=== PATIENT | female | born 1970 | race Caucasian/White ===

== ENCOUNTER 2020-12-25 19:38 | Emergency (ER) | payer OTHER, MEDICAID, SELFPAY ==
[2020-12-25 19:48] VITALS: BP 201/106; PULSE 82; RESP 16; TEMP 36.3; O2SAT 98; BMI 48.2
--- NOTE | 2020-12-25 20:10 | DI.CT.S_ITS ---
PROCEDURE: CT HEAD/BRAIN WO CON INDICATIONS: head injury, confusion TECHNIQUE: Noncontrast 4.5 mm thick angled axial sections acquired from the foramen magnum to the vertex, with coronal and sagittal reformats. For radiation dose reduction, the following was used: automated exposure control, adjustment of mA and/or kV according to patient size. COMPARISON: None. FINDINGS: Image quality: Excellent. CSF spaces: Basal cisterns are patent. No extra-axial fluid collections. Ventricles are normal in size and shape. Brain: No midline shift. No intracranial masses or hemorrhage. Leroy-white matter interface is normal. Skull and face: Calvarium and visualized facial bones are intact, without suspicious lesions. Sinuses: Visualized sinuses and mastoids are clear. IMPRESSION: No acute intracranial process. Dictated by: Smith Kidd M.D. on 12/25/2020 at 21:07 Approved by: Smith Kidd M.D. on 12/25/2020 at 21:12
--- NOTE | 2020-12-25 20:10 | DI.CT.S_ITS ---
PROCEDURE: CT CERVICAL SPINE WO CON INDICATIONS: trauma, midline pain, injury yesterday TECHNIQUE: Noncontrast 3 mm thick sections acquired from the skull base to the T4 level. Sagittal and coronal reformats were then constructed. For radiation dose reduction, the following was used: automated exposure control, adjustment of mA and/or kV according to patient size. COMPARISON: None. FINDINGS: Image quality: Excellent. Bones: No fractures or dislocations. Visualized superior ribs are intact. Multilevel cervical spondylosis and facet arthropathy. Multilevel degenerative endplate sclerosis and spurring. Diffuse facet arthropathy. Soft tissues: Prevertebral soft tissues are normal in thickness. No paravertebral hematomas. No apical pneumothoraces. IMPRESSION: No fracture Dictated by: Smith Kidd M.D. on 12/25/2020 at 21:12 Approved by: Smith Kidd M.D. on 12/25/2020 at 21:15
[2020-12-25] MEDS: TET,DIPH,PERTUSS(ACELL),VAC/PF 0.5 ML SYRINGE IM (20:17)
--- NOTE | 2020-12-25 20:45 | ED_ITS ---
HPI - Head Injury General Chief complaint: Head Injury Stated complaint: thinks concussion, sledding accident Time Seen by Provider: 12/25/20 19:45 Source: patient Mode of arrival: Ambulatory Limitations: no limitations History of Present Illness HPI Narrative: 50-year-old female nonsmoker with history of hypothyroid presents with significant other and a chief complaint of a head injury suffered yesterday while sledding. She was on a slide, traveling at a relatively high rate of speed when she was tossed and struck her forehead. She suffered no loss of consciousness and has full recall. She denies any vomiting. She takes no blood thinners and denies use of alcohol or street drugs. She does have chronic neck pain and says that she does have pain and cannot tell if it is worse than normal. She denies any numbness, tingling or weakness. She had an episode of dizziness earlier today and feels a bit foggy but is otherwise well and free of complaint. She admits to what feels like fullness in her sinuses. She denies nasal drainage and can breath through both nostrils. She's had no fever or chills. MD Complaint: head injury Onset (ago): day(s) Mechanism of Injury: fall Place: outdoors Loss of Consciousness: no Location of injury: frontal Severity: moderate Quality: aching Radiation: none Related Data Home Medications Medication Instructions Recorded Confirmed levothyroxine [Euthyrox] 125 mcg PO DAILY 12/25/20 12/25/20 liothyronine 5 mcg PO DAILY 12/25/20 12/25/20 Allergies Allergy/AdvReac Type Severity Reaction Status Date / Time No Known Drug Allergies Allergy Verified 12/25/20 19:53 Review of Systems Review of Systems ROS Unobtainable: All systems reviewed & are unremarkable except as noted in HPI and below Constitutional Constitutional: Denies chills, Denies fatigue, Denies fever(s), Denies frequent falls, Reports headache(s), Denies lethargy and Denies weakness Eyes Eyes: Denies change in vision, Denies eye discharge, Denies irritation and Denies loss of vision ENT Ears, Nose, Mouth, and Throat: Denies change in voice, Reports dizziness, Reports headache(s), Denies neck pain, Denies sore throat and Denies throat swelling Cardiovascular Cardiovascular: Denies chest pain, Denies irregular heart rhythm, Denies lightheadedness, Denies palpitations, Denies dyspnea, Denies dyspnea on exertion and Denies orthopnea Respiratory Respiratory: Denies cough, Denies dyspnea, Denies dyspnea on exertion and Denies wheezing Gastrointestinal Gastrointestinal: Denies abdominal pain, Denies change in bowel habits, Denies diarrhea, Denies nausea and Denies vomiting Musculoskeletal Musculoskeletal: Denies neck pain and Denies numbness Integumentary/Breasts Skin/Breast: Denies pruritus, Denies erythema, Denies rash and Denies wounds Neurologic Neurologic: Denies behavioral changes, Denies confusion, Reports dizziness, Denies frequent falls, Reports headache(s), Denies loss of vision, Denies numbness and Denies weakness Psychiatric Psychiatric: Denies anxiety, Denies behavioral changes, Denies confusion, Denies depression, Denies homicidal ideation and Denies suicidal ideation Endocrine Endocrine: Denies fatigue, Denies flushing and Denies palpitations Hematologic/Lymphatic Hematologic/Lymphatic: Denies easy bruising Allergic/Immunologic Allergic/Immunologic: Denies urticaria, Denies throat swelling and Denies wheezing Patient History Social History Smoking Status: Never smoker Smoking Status: Never smoker alcohol intake frequency: holidays/special occasions only Substance Use Type: does not use Exam Narrative Exam Narrative: GENERAL: [50] year old patient appears stated age. Well- nourished, well-developed patient, in mild distress. GCS 15 HEAD: Superficial abrasion on forehead, no laceration. No evidence of depressed skull fracture EYES: Pupils equal round and reactive. No hyphema. Extraocular motions intact. No scleral icterus. No injection or drainage. ENT: Nose without bleeding, purulent drainage. No nasal septal hematoma. Throat without erythema, tonsillar hypertrophy or exudate. Airway patent. NECK: Trachea midline. Mild tenderness to midline lower C spine. No stepoffs or crepitance. CARDIOVASCULAR: Regular rate and rhythm without murmurs, gallops, or rubs. RESPIRATORY: Clear to auscultation. Breath sounds equal bilaterally. No wheezes, rales, or rhonchi. GASTROINTESTINAL: Abdomen soft, non-tender, nondistended. EXTREMITIES: No edema or joint tenderness. BACK: Nontender without deformity or crepitance. No flank tenderness. NEURO: AOx3. SKIN: No rash or erythema of visible areas Initial Vital Signs Initial Vital Signs: Vital Signs Temperature 97.4 F L 12/25/20 19:48 Pulse Rate 82 12/25/20 19:48 Respiratory Rate 16 12/25/20 19:48 Blood Pressure 201/106 H 12/25/20 19:48 Pulse Oximetry 98 12/25/20 19:48 Course Orders Ordered: ED Orders 12/25/20 20:10 CT cervical spine wo con Stat CT head/brain wo con Stat Discontinued Medications Diphtheria/Tetanus/Acell Pertussis (Tet,Diph,Pertuss(Acell),Vac/Pf 0.5 Ml Syringe) 0.5 ml IM .ONCE ONE Stop: 12/25/20 19:56 Last Admin: 12/25/20 20:17 Dose: 0.5 ml Documented by: MARLENI Vital Signs Vital signs: Vital Signs - 8 hr 12/25/20 19:48 Temperature 97.4 F L Pulse Rate 82 Respiratory Rate 16 Blood Pressure 201/106 H Pulse Oximetry 98 MDM - Head Injury Imaging Data CT scan - head: Radiologist's Impression: PROCEDURE: CT HEAD/BRAIN WO CON INDICATIONS: head injury, confusion TECHNIQUE: Noncontrast 4.5 mm thick angled axial sections acquired from the foramen magnum to the vertex, with coronal and sagittal reformats. For radiation dose reduction, the following was used: automated exposure control, adjustment of mA and/or kV according to patient size. COMPARISON: None. FINDINGS: Image quality: Excellent. CSF spaces: Basal cisterns are patent. No extra-axial fluid collections. Ventricles are normal in size and shape. Brain: No midline shift. No intracranial masses or hemorrhage. Leroy-white matter interface is normal. Skull and face: Calvarium and visualized facial bones are intact, without suspicious lesions. Sinuses: Visualized sinuses and mastoids are clear. IMPRESSION: No acute intracranial process. Dictated by: Smith Kidd M.D. on 12/25/2020 at 21:07 Approved by: Smith Kidd M.D. on 12/25/2020 at 21:12 CT - cervical spine: Radiologist's Impression: [address] [id number] Scan ReportSigned Patient: Arpita Monzon [facility]#: [id number]: 1970Acct:[id number]/Sex: 50 / FDate of Service: 12/25/20Loc: EDAccession Number: [id number] Procedure: CT cervical spine wo con Ordering Provider: Jose J Bolton D.O. PROCEDURE: CT CERVICAL SPINE WO CON INDICATIONS: trauma, midline pain, injury yesterday TECHNIQUE: Noncontrast 3 mm thick sections acquired from the skull base to the T4 level. Sagittal and coronal reformats were then constructed. For radiation dose reduction, the following was used: automated exposure control, adjustment of mA and/or kV according to patient size. COMPARISON: None. FINDINGS: Image quality: Excellent. Bones: No fractures or dislocations. Visualized superior ribs are intact. Multilevel cervical spondylosis and facet arthropathy. Multilevel degenerative endplate sclerosis and spurring. Diffuse facet arthropathy. Soft tissues: Prevertebral soft tissues are normal in thickness. No paravertebral hematomas. No apical pneumothoraces. IMPRESSION: No fracture Dictated by: Smith Kidd M.D. on 12/25/2020 at 21:12 Approved by: Smith Kidd M.D. on 12/25/2020 at 21:15 Discharge Plan Departure Patient Disposition: Home Clinical Impression: Concussion without loss of consciousness Qualifiers: Encounter type: initial encounter Qualified Code(s): S06.0X0A - Concussion without loss of consciousness, initial encounter Instructions: Concussion Activity Restrictions/Additional Instructions: You have a slight concussion and will likely have a mild headache and some nausea for a few days. Avoiding highly stimulating activities and even TV or computers may be helpful in minimizing your symptoms. Avoid activities that will put you at risk for another head injury for at least a week. You can take tylenol or motrin for headache Return for worsening or persistent symptoms Prescriptions: No Action levothyroxine [Euthyrox] 125 mcg tablet 125 mcg PO DAILY RF: 0 liothyronine 5 mcg Tablet 5 mcg PO DAILY RF: 0
[2020-12-25 21:40] VITALS: BP 196/86; PULSE 71; RESP 16
== END 2020-12-25 21:43 | disposition home or self-care (01) ==
PROVIDERS: Emergency Provider Emergency Medicine
DX: S06.0X0A Concussion without loss of consciousness, initial encounter (principal); M54.5 Low back pain; R41.0 Disorientation, unspecified; W09.8XXA Fall on or from other playground equipment, initial encounter; Z23 Encounter for immunization
CPT/HCPCS: 70450; 72125; 90471; 99284; 90715

== ENCOUNTER 2021-12-20 19:46 | Emergency (ER) | payer OTHER, MEDICAID, SELFPAY ==
[2021-12-20 19:50] VITALS: BP 134/72; PULSE 69; RESP 15; TEMP 35.9; O2SAT 98; BMI 46.8
[2021-12-20 20:18] LABS: COVID19 -Nasal RAPID Negative (Negative)
--- NOTE | 2021-12-20 22:06 | ED.HA ---
HPI - Headache General Chief Complaint: Headache Stated Complaint: wants covid test, partner tested + Time Seen by Provider: 12/20/21 21:48 Mode of arrival: Ambulatory History of Present Illness HPI Narrative: Patient here for COVID testing. Partner tested positive for COVID today. Partner was exposed to another person with COVID last week. Patient denies any cough cold congestion fever chills. Does have mild headache. No loss of taste or smell. No dyspnea. No history of heart attack strokes or diabetes or lung disease. Related Data Home Medications Medication Instructions Recorded Confirmed levothyroxine 125 mcg tablet 125 mcg PO DAILY 12/25/20 07/11/21 (Euthyrox) liothyronine 5 mcg tablet 5 mcg PO DAILY 12/25/20 07/11/21 Allergies Allergy/AdvReac Type Severity Reaction Status Date / Time pseudoephedrine Allergy Verified 12/20/21 19:50 [From [facility]] Review of Systems Review of Systems Narrative: GENERAL: Denies chills, fatigue, malaise, fever, sweats. HEENT: Denies sinus pain, ear pain, sore throat RESPIRATORY: Denies dyspnea, cough CARDIOVASCULAR: Denies chest pain, palpitations GASTROINTESTINAL: Denies nausea, vomiting, abdominal pain : Denies dysuria, frequency, hematuria MUSCULOSKELETAL: denies muscle or bony pain SKIN: Denies rash, skin lesions NEUROLOGIC: Denies weakness, numbness, positive for headache ROS Unobtainable: All systems reviewed & are unremarkable except as noted in HPI and below Patient History Social History Smoking Status: Never smoker Smoking Status: Never smoker alcohol intake frequency: holidays/special occasions only Substance Use Type: does not use Exam Narrative Exam Narrative: GENERAL: in no distress, not toxic not dyspneic HEAD: Normocephalic. EYES: Pupils equal round No scleral icterus. NECK: Trachea midline. CARDIOVASCULAR: Regular rate and rhythm without murmurs RESPIRATORY: Clear to auscultation. Breath sounds equal bilaterally. No wheezes, rales, or rhonchi. BACK: No flank tenderness. NEURO: AOx4. SKIN: Warm and dry PSYCH: Not anxious, is cooperative Initial Vital Signs Initial Vital Signs: Vital Signs Temperature 96.6 F L 12/20/21 19:50 Pulse Rate 69 12/20/21 19:50 Respiratory Rate 15 12/20/21 19:50 Blood Pressure 134/72 12/20/21 19:50 Pulse Oximetry 98 12/20/21 19:50 Course Course Course Narrative: No new issues during course of stay Orders Ordered: ED Orders 12/20/21 19:53 COVID19 -Nasal swab/Pre-Proc Stat Reevaluation(s) Reevaluation #1: Reviewed results with patient and agrees for discharge home. Reviewed quarantine for asymptomatic person's. Time: 22:09 Vital Signs Vital signs: Vital Signs - 8 hr 12/20/21 19:50 12/20/21 22:18 Temperature 96.6 F L Pulse Rate 69 73 Respiratory Rate 15 Blood Pressure 134/72 134/87 Pulse Oximetry 98 97 MDM - Headache Differential Diagnosis Differential diagnosis: Likely other (COVID exposure) Lab Data Labs: Lab Results 12/20/21 Range/Units 19:53 SARS-CoV-2 (PCR) Negative (Negative) MDM Narrative Medical decision making narrative: Appropriate for discharge home. No blood work or imaging indicated. Patient essentially asymptomatic, or complains of mild headache. Exam and vital signs reassuring. Return precautions reviewed with her. She desires discharge home. Discharge Plan Departure Patient Disposition: Home Clinical Impression: Close exposure to 2019 novel coronavirus Instructions: DI for COVID-19 (Suspected or Confirmed ) Activity Restrictions/Additional Instructions: See family doctor in a week for recheck. Guidelines are to quarantine 5 days if you have no symptoms. Return if worse if any questions or concerns Prescriptions: No Action levothyroxine [Euthyrox] 125 mcg tablet 125 mcg PO DAILY 0RF liothyronine 5 mcg Tablet 5 mcg PO DAILY 0RF
[2021-12-20 22:18] VITALS: BP 134/87; PULSE 73; O2SAT 97
--- NOTE | 2021-12-20 22:27 | PC.NURSE ---
Agree with pt care/charting by Kanika Whitlock
== END 2021-12-20 22:27 | disposition home or self-care (01) ==
PROVIDERS: Emergency Provider Emergency Medicine
DX: R51.9 Headache, unspecified (principal); Z20.822 Contact with and (suspected) exposure to COVID-19
CPT/HCPCS: 87635; 99281; 99282; C9803

== ENCOUNTER 2022-09-01 14:36 | Emergency (ER) | payer OTHER, SELFPAY ==
[2022-09-01 14:41] VITALS: BP 171/94; PULSE 72; RESP 20; TEMP 36.8; O2SAT 99; BMI 50.6
--- NOTE | 2022-09-01 14:51 | DI.RAD.S_ITS ---
PROCEDURE: XR CHEST 1V INDICATIONS: chest pain TECHNIQUE: One view of the chest was acquired. COMPARISON: None. FINDINGS: Surgical changes and devices: None. Lungs and pleura: Lungs are clear. No pleural effusions or pneumothorax. Mediastinum: Mediastinal contours appear normal. Heart size is normal. Bones and chest wall: No suspicious bony lesions. Age-appropriate bony degenerative changes are seen. Overlying soft tissues appear unremarkable. IMPRESSION: Unremarkable portable chest for age. Dictated by: Inderjit Shelby M.D. on 09/01/2022 at 14:18 Approved by: Inderjit Shelby M.D. on 09/01/2022 at 14:18
--- NOTE | 2022-09-01 16:01 | ED_ITS ---
HPI - Chest Pain General Chief Complaint: Chest Pain Stated Complaint: Potential carbon monoxide poisoning at work Time Seen by Provider: 09/01/22 16:01 Source: patient and family Mode of arrival: Wheelchair Limitations: no limitations History of Present Illness HPI narrative: Patient is a 52-year-old female. 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 She states she had a fairly sudden onset of headache and dizziness and nausea and cold sweats and generally not feeling very well. She thought that there was potentially a carbon monoxide/dioxide exposure because of a gas leak on the bus. She became nauseous fairly quickly. States she is having a room spinning vertigo sensation. This is positional as every time she sits back the symptoms come on. She is not having any shortness of breath. No other reported neurologic symptoms. She states she has chronic issues with her sinuses but currently that is not any different than her baseline. No ringing in her ears. No sore throat. Related Data Home Medications Medication Instructions Recorded Confirmed levothyroxine 125 mcg tablet 125 mcg PO DAILY 12/25/20 08/12/22 (Euthyrox) liothyronine 5 mcg tablet 5 mcg PO DAILY 12/25/20 08/12/22 Previous Rx's Medication Instructions Recorded meclizine 25 mg tablet 25 mg PO BID PRN dizziness #14 tabs 09/01/22 ondansetron 4 mg disintegrating 4 mg PO Q6H PRN nausea and 09/01/22 tablet vomiting #14 tabs Allergies Allergy/AdvReac Type Severity Reaction Status Date / Time pseudoephedrine Allergy Verified 08/12/22 11:45 [From [facility]] Review of Systems Review of Systems ROS Unobtainable: All systems reviewed & are unremarkable except as noted in HPI and below Patient History Medical History Hypothyroid Sinusitis Social History Smoking Status: Never smoker Smoking Status: Never smoker alcohol intake frequency: holidays/special occasions only Substance Use Type: does not use Exam Initial Vital Signs Initial Vital Signs: Vital Signs Temperature 98.2 F 09/01/22 14:41 Pulse Rate 72 09/01/22 14:41 Respiratory Rate 20 09/01/22 14:41 Blood Pressure 171/94 H 09/01/22 14:41 Pulse Oximetry 99 09/01/22 14:41 Oxygen Delivery Method 09/01/22 14:41 Const General: cooperative, comfortable and No ill appearing HENMT Head: normal to inspection and normocephalic Resp Effort & Inspection: normal respiratory effort Auscultation: clear to auscultation bilaterally Cardio Rate: regular rate Rhythm: regular rhythm Skin General: no rashes or lesions noted Neuro General: patient alert, patient awake, patient oriented x3 and moves all extremities Cognition: normal cognition Speech: speech normal Gait: normal gait Extrem General: normal to inspection Psych Appearance: grossly normal and well kempt Course Orders Ordered: ED Orders 09/01/22 14:47 EKG-12 Lead Stat 09/01/22 14:51 XR chest 1V Stat 09/01/22 16:08 Complete Blood Count AUTO DIFF Stat Comprehensive Metabolic Panel Stat Lipase Stat Magnesium Stat Troponin & CK Cardiac Panel Stat Discontinued Medications Meclizine HCl (Meclizine Hcl 12.5 Mg Tablet) 25 mg PO NOW ONE Stop: 09/01/22 16:03 Last Admin: 09/01/22 16:14 Dose: 25 mg Documented By: KATHRIN Vital Signs Vital signs: Vital Signs - 8 hr 09/01/22 14:41 09/01/22 16:16 09/01/22 16:17 Temperature 98.2 F Pulse Rate 72 77 Respiratory Rate 20 Blood Pressure 171/94 H 176/86 H Pulse Oximetry 99 99 Oxygen Delivery Method Room Air 09/01/22 16:30 09/01/22 16:30 09/01/22 17:00 Temperature Pulse Rate 68 Respiratory Rate 14 Blood Pressure 177/94 H 179/102 H Pulse Oximetry 98 Oxygen Delivery Method Room Air 09/01/22 17:00 Temperature Pulse Rate 69 Respiratory Rate 14 Blood Pressure Pulse Oximetry 99 Oxygen Delivery Method MDM - Chest Pain Lab Data Attestation: I reviewed the patient's lab results. Result diagrams: 09/01/22 16:08 09/01/22 16:08 Labs: Lab Results 09/01/22 09/01/22 Range/Units 16:08 16:08 WBC 8.9 (4.5-11.0) X10^3/uL RBC 3.98 L (4.0-5.2) X10^6/uL Hgb 11.9 L (12.0-16.0) g/dL Hct 35.0 L (36-46) % MCV 88.2 (80-100) fL MCH 29.8 (26-34) PG MCHC 33.8 (30-36) % RDW 14.4 (11.6-14.8) % Plt Count 216 (150-400) X10^3/uL Neut % (Auto) 74.9 (50-75) % Lymph % (Auto) 16.6 L (25-40) % [place] % (Auto) 7.3 (3-14) % Eos % (Auto) 0.8 L (2-4) % Baso % (Auto) 0.4 (0-2) % Neut # (Auto) 6700 (3717-9430) /uL Lymph # (Auto) 1500 (0484-6687) /uL [place] # (Auto) 700 (0-900) /uL Eos # (Auto) 100 (0-450) /uL Baso # (Auto) 0 (0-100) /uL Sodium 137 (137-145) mmol/L Potassium 4.2 (3.4-5.1) mmol/L Chloride 99 (98-107) mmol/L Carbon Dioxide 33 H (22-32) mmol/L BUN 22 H (7-17) mg/dL Creatinine 0.80 (0.52-1.04) mg/dL Estimated GFR > 60 (>60) mL/min BUN/Creatinine Ratio 27.5 H (6-22) Glucose 107 H (70-100) mg/dL Calcium 9.3 (8.4-10.2) mg/dL Magnesium 1.9 (1.6-2.3) mg/dL Total Bilirubin 0.7 (0.2-1.3) mg/dL AST 26 (14-36) IU/L ALT 19 (<35) IU/L Alkaline Phosphatase 87 (38-126) U/L Total Creatine Kinase 202 H (30-135) U/L CK-MB (CK-2) 2.76 H (<2.37) ng/mL CK-MB (CK-2) Rel Index 1.4 L (1.5-5.0) % Troponin I < 0.012 (0.01-0.034) ng/mL Total Protein 7.4 (6.3-8.2) g/dL Albumin 4.0 (3.5-5.0) g/dL Globulin 3.4 (1.7-4.1) g/dL Albumin/Globulin Ratio 1.2 (1.0-2.8) Lipase 36 (23-300) U/L Imaging Data Chest x-ray: Radiologist's Impression: [address] [id number] XRay Report Signed Patient: Arpita Monzon MR#: [id number] : 1970 Acct:[id number] Age/Sex: 52 / F Date of Service: 09/01/22 Loc: ED Accession Number: [id number] ?? Procedure: XR chest 1V Ordering Provider: Hilario Harrison D.O. PROCEDURE:? XR CHEST 1V ? INDICATIONS:? chest pain ? TECHNIQUE:? One view of the chest was acquired.? ? COMPARISON:? None. ? FINDINGS:? ? Surgical changes and devices:? None.? ? Lungs and pleura:? Lungs are clear.? No pleural effusions or pneumothorax.? ? Mediastinum:? Mediastinal contours appear normal.? Heart size is normal.? ? Bones and chest wall:? No suspicious bony lesions.? Age-appropriate bony degenerative changes are seen. ? Overlying soft tissues appear unremarkable.? ? ? IMPRESSION:? Unremarkable portable chest for age. ? ? Dictated by: Inderjit Shelby M.D. on 09/01/2022 at 14:18 ? ? Approved by: Inderjit Shelby M.D. on 09/01/2022 at 14:18? ECG Data Attestation: I personally reviewed and interpreted this ECG as follows: Interpretation: Sinus rhythm Normal axis Ventricular rate is 67 Normal QRS Normal QTC No ST T wave changes MDM Narrative Medical decision making narrative: Patient is not hypoxic. Not tachypneic. No respiratory distress. Chest x-ray is unremarkable. Vital signs unremarkable. Labs are unremarkable. EKG is unremarkable. Has reproducible vertigo symptoms when she lays back. An exposure to carbon monoxide/dioxide is not unreasonable given her occupation however removing herself from the environment would be the treatment for any of these symptoms. They her presenting symptoms could potentially be the result of this. No indication for further radiologic studies. Will treat symptomatically. Will have her avoid driving for the next couple days. She was given return precautions. She expressed understanding and agreement. Discharge Plan Departure Patient Disposition: Home Clinical Impression: Lightheadedness, Nausea Instructions: Vertigo, DI for Nausea -- Adult Activity Restrictions/Additional Instructions: You can take Tylenol for any headaches. You can take the other medications as needed for symptom treatment. Recommend that you avoid situations where you could be exposed to carbon monoxide/carbon dioxide for the next couple days. If your symptoms worsen please return to the emergency department for further evaluation Prescriptions: New meclizine 25 mg tablet 25 mg PO BID PRN (Reason: dizziness) Qty: 14 0RF ondansetron 4 mg tablet,disintegrating 4 mg PO Q6H PRN (Reason: nausea and vomiting) Qty: 14 0RF No Action levothyroxine [Euthyrox] 125 mcg tablet 125 mcg PO DAILY liothyronine 5 mcg Tablet 5 mcg PO DAILY Visit Report Forms: Patient Portal/API
[2022-09-01] MEDS: MECLIZINE HCL 12.5 MG TABLET 25 MG PO (16:14)
[2022-09-01 16:16] VITALS: BP 176/86
[2022-09-01 16:16] LABS: Add Manual Diff / Slide Review NO; Basophils Absolute Auto 0 /uL (0-100); Basophils Percent Auto 0.4 % (0-2); Eosinophils Absolute Auto 100 /uL (0-450); Eosinophils Percent Auto 0.8 % (2-4); Hemoglobin 11.9 g/dL (12.0-16.0); Lymphocytes Absolute Auto 1500 /uL (1100-4500); Lymphocytes Percent Auto 16.6 % (25-40); Mean Corpuscular HGB Conc 33.8 % (30-36); Mean Corpuscular Hemoglobin 29.8 PG (26-34); Mean Corpuscular Volume 88.2 fL (80-100); Monocytes Absolute Auto 700 /uL (0-900); Monocytes Percent Auto 7.3 % (3-14); Neutrophils Absolute Auto 6700 /uL (1500-7000); Neutrophils Percent Auto 74.9 % (50-75); Platelet Count 216 X10^3/uL (150-400); Red Blood Cell Count 3.98 X10^6/uL (4.0-5.2); Red Cell Distribution Width 14.4 % (11.6-14.8); White Blood Cell Count 8.9 X10^3/uL (4.5-11.0)
[2022-09-01 16:17] VITALS: PULSE 77; O2SAT 99
[2022-09-01 16:30] VITALS: BP 177/94; PULSE 68; RESP 14; O2SAT 98
[2022-09-01 16:32] LABS: Alanine Aminotransferase 19 IU/L (<35); Albumin Globulin Ratio 1.2 (1.0-2.8); Alkaline Phosphatase 87 U/L (38-126); Aspartate Aminotransferase 26 IU/L (14-36); BUN Creatinine Ratio 27.5 (6-22); Bilirubin Total 0.7 mg/dL (0.2-1.3); Blood Urea Nitrogen 22 mg/dL (7-17); Calcium 9.3 mg/dL (8.4-10.2); Carbon Dioxide 33 mmol/L (22-32); Chloride 99 mmol/L (98-107); Creatine Kinase 202 U/L (30-135); Estimated Glomerular Filt Rate > 60 mL/min (>60); Globulin 3.4 g/dL (1.7-4.1); Glucose 107 mg/dL (70-100); HEMOLYSIS 41 (0-50); Lipase 36 U/L (23-300); Magnesium 1.9 mg/dL (1.6-2.3); Potassium 4.2 mmol/L (3.4-5.1); Sodium 137 mmol/L (137-145); Total Protein 7.4 g/dL (6.3-8.2)
[2022-09-01 16:43] LABS: Troponin I < 0.012 ng/mL (0.01-0.034)
[2022-09-01 16:47] LABS: CKMB % Relative Index 1.4 % (1.5-5.0); Creatine Kinase MB 2.76 ng/mL (<2.37)
[2022-09-01 17:00] VITALS: BP 179/102; PULSE 69; RESP 14; O2SAT 99
--- NOTE | 2022-09-01 17:44 | PC.NURSE ---
Patient's blood pressure is elevated due to the fact she did not take her medication last night like normal and has not taken it today.
== END 2022-09-01 17:45 | disposition home or self-care (01) ==
PROVIDERS: Emergency Provider Emergency Medicine
DX: Z57.5 Occupational exposure to toxic agents in other industries (principal); R07.9 Chest pain, unspecified; R42 Dizziness and giddiness; R11.0 Nausea; Y99.0 Civilian activity done for income or pay
CPT/HCPCS: 36415; 71045; 80053; 82550; 82553; 83690; 83735; 84484; 85025; 93005; 93010; 99284

== ENCOUNTER 2022-09-03 16:06 | Emergency (ER) | payer OTHER, SELFPAY ==
--- NOTE | 2022-09-03 11:51 | DI.MRI.S_ITS ---
PROCEDURE: MR STROKE Pre- and post-contrast brain MRI, non-contrast brain MR angiogram, pre- and postcontrast neck MR angiogram INDICATIONS: concern for posterior circulation stroke TECHNIQUE: Brain: Noncontrast axial T1 spin echo, axial T2 fast spin echo, sagittal and axial FLAIR, coronal T2 fast spin echo, axial gradient echo, axial diffusion and ADC through the brain. After the administration of contrast, axial 3D VIBE of the cranial vasculature and brain. Brain MRA: Non-contrast 3-D time of flight MR angiogram, with multiple mysgccl-znguolxsp-qmvyaoiwjk (MIP) reformats performed. Neck MRA: Axial and sagittal TruFISP through the neck. Coronal dynamic MR angiogram during administration of contrast in the arterial and venous phases, with 3-dimenstional ubcdbhj-fvuzgdyrn-bxwtlyquoh (MIP) reformats constructed from subtraction images. COMPARISON: [facility], CT, CT HEAD/BRAIN WO CON, 09/03/2022, 17:24. FINDINGS: Image quality: Excellent. BRAIN: No restricted diffusion to indicate recent ischemia. The major intracranial vascular flow-related signal voids are maintained. No brain parenchymal FLAIR signal abnormality. Midline structures normal in configuration. BRAIN MR ANGIOGRAM: Anterior circulation: Intracranial internal carotid arteries are normal in size and enhancement. The flow within the paired anterior cerebral arteries is normal and symmetric. The flow within the middle cerebral arteries is normal and symmetric. The anterior communicating artery is seen. No stenoses, occlusions, or aneurysms. Posterior circulation: The right vertebral artery is hypoplastic and appears to either terminate in PICA or contribute very little to the basilar circulation. The basilar artery and posterior cerebral arteries are unremarkable. NECK MR ANGIOGRAM: Carotids: Great vessels demonstrate a conventional anatomy as they arise from the aortic arch. The origins of the common carotid arteries appear patent. The calibers and courses of both common carotid arteries are normal. The bifurcation regions appear normal bilaterally. The internal carotid arteries demonstrate normal course and caliber. Posterior circulation: Hypoplastic right vertebral artery. Cervical portions of the vertebral arteries appear widely patent. Miscellaneous: Subclavian arteries appear patent. Pre-contrast images through the neck show no soft tissue abnormalities. IMPRESSION: BRAIN MRI: No acute infarct or other acute intracranial abnormality. BRAIN MR ANGIOGRAM: No hemodynamically significant stenosis or occlusion of the major intracranial arterial circulation. Hypoplastic right vertebral artery which appears to either terminate in PICA or contribute very little to the basilar circulation. NECK MR ANGIOGRAM: Hypoplastic right vertebral artery. No cervical arterial stenosis or occlusion demonstrated. Dictated by: Niranjan Mitchell M.D. on 09/04/2022 at 11:38 Approved by: Niranjan Mitchell M.D. on 09/04/2022 at 11:47
[2022-09-03 16:13] VITALS: BP 150/78; PULSE 82; RESP 16; TEMP 36.4; O2SAT 99; BMI 50.6
--- NOTE | 2022-09-03 17:13 | DI.CT.S_ITS ---
PROCEDURE: CT HEAD/BRAIN WO CON INDICATIONS: Vertigo TECHNIQUE: Noncontrast 4.5 mm thick angled axial sections acquired from the foramen magnum to the vertex, with coronal and sagittal reformats. For radiation dose reduction, the following was used: automated exposure control, adjustment of mA and/or kV according to patient size. COMPARISON: [facility], CT, CT HEAD/BRAIN WO CON, 12/25/2020, 20:10. FINDINGS: Image quality: Excellent. CSF spaces: Basal cisterns are patent. No extra-axial fluid collections. Ventricles are normal in size and shape. Brain: No midline shift. No intracranial masses or hemorrhage. Leroy-white matter interface is normal. Skull and face: Calvarium and visualized facial bones are intact, without suspicious lesions. Sinuses: Visualized sinuses and mastoids are clear. IMPRESSION: No acute intracranial abnormality. Dictated by: Rebel Rivera M.D. on 09/03/2022 at 17:43 Approved by: Rebel Rivera M.D. on 09/03/2022 at 17:45
[2022-09-03 17:29] LABS: Albumin 3.9 g/dL (3.5-5.0); Albumin Globulin Ratio 1.2 (1.0-2.8); Alkaline Phosphatase 90 U/L (38-126); Aspartate Aminotransferase 21 IU/L (14-36); BUN Creatinine Ratio 17.6 (6-22); Bilirubin Total 0.5 mg/dL (0.2-1.3); Blood Urea Nitrogen 15 mg/dL (7-17); Calcium 9.5 mg/dL (8.4-10.2); Carbon Dioxide 33 mmol/L (22-32); Chloride 101 mmol/L (98-107); Creatine Kinase 127 U/L (30-135); Estimated Glomerular Filt Rate > 60 mL/min (>60); Globulin 3.3 g/dL (1.7-4.1); Glucose 97 mg/dL (70-100); HEMOLYSIS < 15 (0-50); Lipase 45 U/L (23-300); Potassium 3.9 mmol/L (3.4-5.1); Sodium 141 mmol/L (137-145); Total Protein 7.2 g/dL (6.3-8.2)
[2022-09-03 17:30] LABS: Add Manual Diff / Slide Review NO; Basophils Absolute Auto 0 /uL (0-100); Basophils Percent Auto 0.4 % (0-2); Eosinophils Absolute Auto 100 /uL (0-450); Eosinophils Percent Auto 1.6 % (2-4); Hematocrit 37.6 % (36-46); Hemoglobin 12.4 g/dL (12.0-16.0); Lymphocytes Absolute Auto 2300 /uL (1100-4500); Lymphocytes Percent Auto 26.5 % (25-40); Mean Corpuscular Hemoglobin 29.4 PG (26-34); Mean Corpuscular Volume 89.2 fL (80-100); Monocytes Absolute Auto 700 /uL (0-900); Monocytes Percent Auto 8.4 % (3-14); Neutrophils Absolute Auto 5500 /uL (1500-7000); Neutrophils Percent Auto 63.1 % (50-75); Platelet Count 232 X10^3/uL (150-400); Red Blood Cell Count 4.22 X10^6/uL (4.0-5.2); White Blood Cell Count 8.8 X10^3/uL (4.5-11.0)
[2022-09-03 17:35] LABS: Alanine Aminotransferase 17 IU/L (<35)
[2022-09-03] MEDS: SODIUM CHLORIDE 0.9% 1,000 ML 1000 ML IV (17:39)
[2022-09-03 17:40] LABS: Troponin I < 0.012 ng/mL (0.01-0.034)
[2022-09-03 17:46] LABS: CKMB % Relative Index 1.4 % (1.5-5.0); Creatine Kinase MB 1.72 ng/mL (<2.37)
[2022-09-03 18:00] LABS: Thyroid Stimulating Hormone 0.579 uIU/mL (0.47-4.68)
--- NOTE | 2022-09-03 18:17 | ED.GENADULT ---
HPI - General Adult <Mara Capone MD - Last Filed: 09/10/22 03:22> General Chief complaint: Dizziness Stated complaint: Recheck for possible carbon monoxide poisoning Time Seen by Provider: 09/03/22 17:12 Source: patient Mode of arrival: Wheelchair History of Present Illness HPI narrative: 52-year-old woman with a history of hypertension, hypothyroidism hyperlipidemia presents for the 2nd time with complaints of dizziness. 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 Symptoms did not improve when she was removed from the vehicle. She is complaining of headache, dizziness nausea and cold sweats. Blood pressures were relatively elevated at the time. Eventually diagnosed with vertigo with symptoms reproducible when she lays back. She was given meclizine and Zofran and instructions to follow up of symptoms did not improve. Today she is complaining of continued dizziness, she has noticed some blurry vision, increasing difficulty and worsening vertigo with movement particularly if she is in a vehicle. Has not been able to return to driving at. Also complains of sinus pressure, headache pain at the base of her neck. She reports that she has intermittent tinnitus as a chronic problem which is significantly worse recently. Has been having increasing difficulty with elevated blood pressures as well. She notes that she has been having increasing word-finding difficulties in her partner notes that she seems like she has been cognitively slowed. She does not report extremity paresthesias or weakness. Related Data Home Medications Medication Instructions Recorded Confirmed levothyroxine 125 mcg tablet 125 mcg PO DAILY 12/25/20 08/12/22 (Euthyrox) liothyronine 5 mcg tablet 5 mcg PO DAILY 12/25/20 08/12/22 Previous Rx's Medication Instructions Recorded meclizine 25 mg tablet 25 mg PO BID PRN dizziness #14 tabs 09/01/22 ondansetron 4 mg disintegrating 4 mg PO Q6H PRN nausea and 09/01/22 tablet vomiting #14 tabs Allergies Allergy/AdvReac Type Severity Reaction Status Date / Time pseudoephedrine Allergy Verified 08/12/22 11:45 [From [facility]] Review of Systems <Mara Capone MD - Last Filed: 09/10/22 03:22> Review of Systems Narrative: Remainder of complete review of systems is otherwise unremarkable except for that included in the HPI. Patient History <Mara Capone MD - Last Filed: 09/10/22 03:22> Medical History (Updated 09/04/22 @ 12:27 by Hilario Harrison DO) Hyperlipidemia Hypertension Hypothyroid Sinusitis Social History Smoking Status: Never smoker Smoking Status: Never smoker alcohol intake frequency: holidays/special occasions only Substance Use Type: does not use Exam <Mara Capone MD - Last Filed: 09/10/22 03:22> Initial Vital Signs Initial Vital Signs: Vital Signs Temperature 97.5 F L 09/03/22 16:13 Pulse Rate 82 09/03/22 16:13 Respiratory Rate 16 09/03/22 16:13 Blood Pressure 150/78 H 09/03/22 16:13 Pulse Oximetry 99 09/03/22 16:13 Oxygen Delivery Method 09/03/22 16:13 General: Healthy appearing, in mild distress. Able to give a complete and coherent history. Well-nourished well-developed HEENT: Moist mucous membranes, normal sclera with reactive pupils, no positional nystagmus. Neck: No JVD, supple Respiratory: Lungs are clear to auscultation, no wheezing no rales no rhonchi. Full and symmetrical air movement Cardiac: Regular rate and rhythm no murmurs no bruits Abdomen: Soft, nontender, good bowel tones, no flank pain Skin: Warm and dry, no rashes Neurologic: Grossly neurologically intact with no obvious asymmetries or abnormalities. NIH score = 0 Extremities: No trauma, well perfused Psych: Cooperative, appropriate insight and affect <Hilario Harrison DO - Last Filed: 09/04/22 12:28> Initial Vital Signs Initial Vital Signs: Vital Signs Temperature 97.5 F L 09/03/22 16:13 Pulse Rate 82 09/03/22 16:13 Respiratory Rate 16 09/03/22 16:13 Blood Pressure 150/78 H 09/03/22 16:13 Pulse Oximetry 99 09/03/22 16:13 Oxygen Delivery Method 09/03/22 16:13 Course <Mara Capone MD - Last Filed: 09/10/22 03:22> Orders Ordered: Discontinued Medications Amlodipine Besylate (Amlodipine 5 Mg Tablet) 10 mg PO NOW ONE Stop: 09/03/22 22:17 Last Admin: 09/04/22 01:41 Dose: 10 mg Documented By: MEREDITH Gabapentin (Gabapentin 300 Mg Capsule) 300 mg PO NOW ONE Stop: 09/03/22 22:17 Last Admin: 09/04/22 01:41 Dose: 300 mg Documented By: MEREDITH Sodium Chloride (Normal Saline 0.9%) 1,000 mls @ 1,000 mls/hr IV BOLUS ONE Stop: 09/03/22 18:11 Last Infusion: 09/03/22 19:26 Dose: 0 mls/hr Documented By: Admin: 09/03/22 17:39 Dose: 1,000 mls/hr Documented By: KATHRIN Lisinopril (Lisinopril 20 Mg Tablet) 40 mg PO NOW ONE Stop: 09/03/22 22:17 Last Admin: 09/04/22 01:41 Dose: 40 mg Documented By: MEREDITH Lorazepam (Lorazepam 2 Mg/Ml Inj) 2 mg IV NOW ONE Stop: 09/04/22 06:36 Last Admin: 09/04/22 09:03 Dose: Not Given Documented By: MUKUL Lorazepam (Lorazepam 2 Mg/Ml Inj) 1 mg IV NOW ONE Stop: 09/04/22 10:22 Last Admin: 09/04/22 10:25 Dose: 1 mg Documented By: MUKUL Lorazepam (Lorazepam 2 Mg/Ml Inj) 1 mg IV NOW ONE Stop: 09/04/22 10:49 Last Admin: 09/04/22 10:54 Dose: 1 mg Documented By: MUKUL Vital Signs Vital signs: Vital Signs - 8 hr 09/04/22 09:29 09/04/22 09:29 09/04/22 09:30 Pulse Rate 82 77 Respiratory Rate 18 Blood Pressure 136/73 Pulse Oximetry 100 99 Oxygen Delivery Method Room Air 09/04/22 10:06 09/04/22 11:54 09/04/22 11:55 Pulse Rate 91 H 78 75 Respiratory Rate 14 Blood Pressure Pulse Oximetry 99 98 Oxygen Delivery Method Room Air 09/04/22 11:55 Pulse Rate Respiratory Rate Blood Pressure 123/65 Pulse Oximetry Oxygen Delivery Method <Hilario Harrison DO - Last Filed: 09/04/22 12:28> Orders Ordered: Discontinued Medications Amlodipine Besylate (Amlodipine 5 Mg Tablet) 10 mg PO NOW ONE Stop: 09/03/22 22:17 Last Admin: 09/04/22 01:41 Dose: 10 mg Documented By: MEREDITH Gabapentin (Gabapentin 300 Mg Capsule) 300 mg PO NOW ONE Stop: 09/03/22 22:17 Last Admin: 09/04/22 01:41 Dose: 300 mg Documented By: MEREDITH Sodium Chloride (Normal Saline 0.9%) 1,000 mls @ 1,000 mls/hr IV BOLUS ONE Stop: 09/03/22 18:11 Last Infusion: 09/03/22 19:26 Dose: 0 mls/hr Documented By: Admin: 09/03/22 17:39 Dose: 1,000 mls/hr Documented By: KATHRIN Lisinopril (Lisinopril 20 Mg Tablet) 40 mg PO NOW ONE Stop: 09/03/22 22:17 Last Admin: 09/04/22 01:41 Dose: 40 mg Documented By: MEREDITH Lorazepam (Lorazepam 2 Mg/Ml Inj) 2 mg IV NOW ONE Stop: 09/04/22 06:36 Last Admin: 09/04/22 09:03 Dose: Not Given Documented By: MUKUL Lorazepam (Lorazepam 2 Mg/Ml Inj) 1 mg IV NOW ONE Stop: 09/04/22 10:22 Last Admin: 09/04/22 10:25 Dose: 1 mg Documented By: MUKUL Lorazepam (Lorazepam 2 Mg/Ml Inj) 1 mg IV NOW ONE Stop: 09/04/22 10:49 Last Admin: 09/04/22 10:54 Dose: 1 mg Documented By: MUKUL Vital Signs Vital signs: Vital Signs - 8 hr 09/04/22 09:29 09/04/22 09:29 09/04/22 09:30 Pulse Rate 82 77 Respiratory Rate 18 Blood Pressure 136/73 Pulse Oximetry 100 99 Oxygen Delivery Method Room Air 09/04/22 10:06 09/04/22 11:54 09/04/22 11:55 Pulse Rate 91 H 78 75 Respiratory Rate 14 Blood Pressure Pulse Oximetry 99 98 Oxygen Delivery Method Room Air 09/04/22 11:55 Pulse Rate Respiratory Rate Blood Pressure 123/65 Pulse Oximetry Oxygen Delivery Method Medical Decision Making <Mara Capone MD - Last Filed: 09/10/22 03:22> Lab Data Result diagrams: 09/03/22 16:50 09/03/22 16:50 Labs: Lab Results 09/03/22 09/03/22 09/03/22 Range/Units 16:50 16:50 16:50 WBC 8.8 (4.5-11.0) X10^3/uL RBC 4.22 (4.0-5.2) X10^6/uL Hgb 12.4 (12.0-16.0) g/dL Hct 37.6 (36-46) % MCV 89.2 (80-100) fL MCH 29.4 (26-34) PG MCHC 33.0 (30-36) % RDW 14.0 (11.6-14.8) % Plt Count 232 (150-400) X10^3/uL Neut % (Auto) 63.1 (50-75) % Lymph % (Auto) 26.5 (25-40) % [place] % (Auto) 8.4 (3-14) % Eos % (Auto) 1.6 L (2-4) % Baso % (Auto) 0.4 (0-2) % Neut # (Auto) 5500 (7854-5506) /uL Lymph # (Auto) 2300 (8921-1505) /uL [place] # (Auto) 700 (0-900) /uL Eos # (Auto) 100 (0-450) /uL Baso # (Auto) 0 (0-100) /uL Sodium 141 (137-145) mmol/L Potassium 3.9 (3.4-5.1) mmol/L Chloride 101 (98-107) mmol/L Carbon Dioxide 33 H (22-32) mmol/L BUN 15 (7-17) mg/dL Creatinine 0.85 (0.52-1.04) mg/dL Estimated GFR > 60 (>60) mL/min BUN/Creatinine Ratio 17.6 (6-22) Glucose 97 (70-100) mg/dL Calcium 9.5 (8.4-10.2) mg/dL Total Bilirubin 0.5 (0.2-1.3) mg/dL AST 21 (14-36) IU/L ALT 17 (<35) IU/L Alkaline Phosphatase 90 (38-126) U/L Total Creatine Kinase 127 (30-135) U/L CK-MB (CK-2) 1.72 (<2.37) ng/mL CK-MB (CK-2) Rel Index 1.4 L (1.5-5.0) % Troponin I < 0.012 (0.01-0.034) ng/mL Total Protein 7.2 (6.3-8.2) g/dL Albumin 3.9 (3.5-5.0) g/dL Globulin 3.3 (1.7-4.1) g/dL Albumin/Globulin Ratio 1.2 (1.0-2.8) Lipase 45 (23-300) U/L TSH 0.579 (0.47-4.68) uIU/mL Imaging Data CT scan - head: Radiologist's Impression: FINDINGS:? Image quality:? Excellent.? ? CSF spaces:? Basal cisterns are patent.? No extra-axial fluid collections.? Ventricles are normal in size and shape.? ? Brain:? No midline shift.? No intracranial masses or hemorrhage.? Leroy-white matter interface is normal.? ? Skull and face:? Calvarium and visualized facial bones are intact, without suspicious lesions.? ? Sinuses:? Visualized sinuses and mastoids are clear.? ? IMPRESSION:? No acute intracranial abnormality. ? ? Dictated by: Rebel Rivera M.D. on 09/03/2022 at 17:43 ? ? ECG Data Interpretation: Sinus rhythm at a rate of 73 Normal intervals, normal axis No acute ischemic changes MDM Narrative Medical decision making narrative: 52-year-old woman with hypertension, hyperlipidemia, morbid obesity presents for the 2nd time with vertigo/dizziness is getting progressively worse. Blood pressures have continued to be elevated. She notes significant exacerbation with movement even passive movement while riding in a car. Worsening tinnitus, blurring vision, headache and pressure in the back of her neck lower part of the occiput. With persistent vertigo and now with mild visual changes possibility of a posterior stroke is entertained. CT scan is unremarkable. No evidence of infectious etiology. Benign positional vertigo seems less likely based on her exam. Have recommended brain MRI to rule out posterior circulation stroke. MRI will be available in the morning so patient will be boarded in the emergency department over the course of the evening. <Hilario Harrison DO - Last Filed: 09/04/22 12:28> Lab Data Lab results reviewed: Yes I reviewed the patient's lab results. Labs: Lab Results 09/03/22 09/03/22 09/03/22 Range/Units 16:50 16:50 16:50 WBC 8.8 (4.5-11.0) X10^3/uL RBC 4.22 (4.0-5.2) X10^6/uL Hgb 12.4 (12.0-16.0) g/dL Hct 37.6 (36-46) % MCV 89.2 (80-100) fL MCH 29.4 (26-34) PG MCHC 33.0 (30-36) % RDW 14.0 (11.6-14.8) % Plt Count 232 (150-400) X10^3/uL Neut % (Auto) 63.1 (50-75) % Lymph % (Auto) 26.5 (25-40) % [place] % (Auto) 8.4 (3-14) % Eos % (Auto) 1.6 L (2-4) % Baso % (Auto) 0.4 (0-2) % Neut # (Auto) 5500 (8962-6829) /uL Lymph # (Auto) 2300 (8266-2573) /uL [place] # (Auto) 700 (0-900) /uL Eos # (Auto) 100 (0-450) /uL Baso # (Auto) 0 (0-100) /uL Sodium 141 (137-145) mmol/L Potassium 3.9 (3.4-5.1) mmol/L Chloride 101 (98-107) mmol/L Carbon Dioxide 33 H (22-32) mmol/L BUN 15 (7-17) mg/dL Creatinine 0.85 (0.52-1.04) mg/dL Estimated GFR > 60 (>60) mL/min BUN/Creatinine Ratio 17.6 (6-22) Glucose 97 (70-100) mg/dL Calcium 9.5 (8.4-10.2) mg/dL Total Bilirubin 0.5 (0.2-1.3) mg/dL AST 21 (14-36) IU/L ALT 17 (<35) IU/L Alkaline Phosphatase 90 (38-126) U/L Total Creatine Kinase 127 (30-135) U/L CK-MB (CK-2) 1.72 (<2.37) ng/mL CK-MB (CK-2) Rel Index 1.4 L (1.5-5.0) % Troponin I < 0.012 (0.01-0.034) ng/mL Total Protein 7.2 (6.3-8.2) g/dL Albumin 3.9 (3.5-5.0) g/dL Globulin 3.3 (1.7-4.1) g/dL Albumin/Globulin Ratio 1.2 (1.0-2.8) Lipase 45 (23-300) U/L TSH 0.579 (0.47-4.68) uIU/mL Imaging Data MRI stroke: Radiologist's Impression: [address] [address] Magnetic Resonance Report Signed Patient: Arpita Monzon MR#: [id number] : 1970 Acct:[id number] Age/Sex: 52 / F Date of Service: 09/03/22 Loc: ED Accession Number: [id number] ?? Procedure: MR stroke Ordering Provider: Mara Capone MD PROCEDURE:? MR STROKE Pre- and post-contrast brain MRI, non-contrast brain MR angiogram, pre- and postcontrast neck MR angiogram ? INDICATIONS:? concern for posterior circulation stroke ? TECHNIQUE:? Brain:? Noncontrast axial T1 spin echo, axial T2 fast spin echo, sagittal and axial FLAIR, coronal T2 fast spin echo, axial gradient echo, axial diffusion and ADC through the brain.? After the administration of contrast, axial 3D VIBE of the cranial vasculature and brain.? Brain MRA:? Non-contrast 3-D time of flight MR angiogram, with multiple ihovxyf-vqwuqyyix-cmixxoobqx (MIP) reformats performed.? Neck MRA:? Axial and sagittal TruFISP through the neck.? Coronal dynamic MR angiogram during administration of contrast in the arterial and venous phases, with 3-dimenstional aftroio-rwnhhnejm-zoipigxysj (MIP) reformats constructed from subtraction images.? ? COMPARISON:? [facility], CT, CT HEAD/BRAIN WO CON, 09/03/2022, 17:24. ? FINDINGS:? Image quality:? Excellent.? ? BRAIN:? No restricted diffusion to indicate recent ischemia.? The major intracranial vascular flow-related signal voids are maintained.? No brain parenchymal FLAIR signal abnormality. ?Midline structures normal in configuration. ? BRAIN MR ANGIOGRAM:? Anterior circulation:? Intracranial internal carotid arteries are normal in size and enhancement.? The flow within the paired anterior cerebral arteries is normal and symmetric.? The flow within the middle cerebral arteries is normal and symmetric.? The anterior communicating artery is seen.? No stenoses, occlusions, or aneurysms.? Posterior circulation:? The right vertebral artery is hypoplastic and appears to either terminate in PICA or contribute very little to the basilar circulation.? The basilar artery and posterior cerebral arteries are unremarkable. ? NECK MR ANGIOGRAM:? Carotids:? Great vessels demonstrate a conventional anatomy as they arise from the aortic arch.? The origins of the common carotid arteries appear patent.? The calibers and courses of both common carotid arteries are normal.? The bifurcation regions appear normal bilaterally.? The internal carotid arteries demonstrate normal course and caliber. ? Posterior circulation:? Hypoplastic right vertebral artery.? Cervical portions of the vertebral arteries appear widely patent. Miscellaneous:? Subclavian arteries appear patent.? Pre-contrast images through the neck show no soft tissue abnormalities.? ? IMPRESSION:? ? BRAIN MRI:? No acute infarct or other acute intracranial abnormality. ? BRAIN MR ANGIOGRAM:? No hemodynamically significant stenosis or occlusion of the major intracranial arterial circulation.? Hypoplastic right vertebral artery which appears to either terminate in PICA or contribute very little to the basilar circulation. ? NECK MR ANGIOGRAM:? Hypoplastic right vertebral artery.? No cervical arterial stenosis or occlusion demonstrated. ? ? Dictated by: Niranjan Mitchell M.D. on 09/04/2022 at 11:38 ? ? Approved by: Niranjan Mitchell M.D. on 09/04/2022 at 11:47? [facility] Narrative Medical decision making narrative: 52-year-old woman with hypertension, hyperlipidemia, morbid obesity presents for the 2nd time with vertigo/dizziness is getting progressively worse. Blood pressures have continued to be elevated. She notes significant exacerbation with movement even passive movement while riding in a car. Worsening tinnitus, blurring vision, headache and pressure in the back of her neck lower part of the occiput. With persistent vertigo and now with mild visual changes possibility of a posterior stroke is entertained. CT scan is unremarkable. No evidence of infectious etiology. Benign positional vertigo seems less likely based on her exam. Have recommended brain MRI to rule out posterior circulation stroke. MRI will be available in the morning so patient will be boarded in the emergency department over the course of the evening. Dr harrison: Received turned over. Reviewed patient's history and physical exam. Reviewed workup up to this point. Performed my own independent exam. MRI initially was difficult secondary to some claustrophobia issues. There was somewhat of a delay because of a miscommunication. The quality technician fiberglass thought that the MRI was canceled however angiolytics were ordered by evening provider. Once this was rectified patient did obtain the MRI. MRI shows no signs of central lesion. I did discuss this with the patient. We will continue with the meclizine. Informed her that she may need to follow-up with her primary doctor to discuss indications for referral to see physical therapy and/or ear nose and throat. I also informed her that I feel this is very unlikely related to any carbon monoxide/dioxide exposures. She expressed understanding and agreement with plan. Discharge Plan Departure Patient Disposition: Home Clinical Impression: Vertigo Instructions: DI for Vertigo Activity Restrictions/Additional Instructions: I do recommend that you continue to take all of your medications as directed. Be sure to increase your fluid intake. Contact your primary doctor for follow-up so that you can discuss the indications for referral to physical therapy or potentially ear nose and throat. Prescriptions: No Action meclizine 25 mg tablet 25 mg PO BID PRN (Reason: dizziness) Qty: 14 0RF ondansetron 4 mg tablet,disintegrating 4 mg PO Q6H PRN (Reason: nausea and vomiting) Qty: 14 0RF levothyroxine [Euthyrox] 125 mcg tablet 125 mcg PO DAILY liothyronine 5 mcg Tablet 5 mcg PO DAILY Stand Alone Forms: Work Release Note Visit Report Forms: Patient Portal/API
[2022-09-03 18:38] VITALS: BP 142/80
[2022-09-04] VITALS (9 sets, daily range): BP systolic 123–136; BP diastolic 60–73; PULSE 71–91; RESP 14–18; TEMP 36.9; O2SAT 97–100
[2022-09-04] MEDS: lisinopriL 20 MG TABLET 40 MG PO (01:41)
[2022-09-04] MEDS: AMLODIPINE 5 MG TABLET 10 MG PO (01:41)
[2022-09-04] MEDS: GABAPENTIN 300 MG CAPSULE PO (01:41)
[2022-09-04] MEDS: LORazepam 2 MG/ML INJ 1 MG IV ×2 (10:25→10:54)
--- NOTE | 2022-09-04 10:54 | PC.NURSE ---
Pt requested additional dose of Ativan to complete MRI scan. Pt given 1mg Ativan while in MRI.
--- NOTE | 2022-09-04 11:57 | PC.NURSE ---
PT back from MRI, tolerated well. Pt is sleeping, vitals stable.
== END 2022-09-04 12:48 | disposition home or self-care (01) ==
PROVIDERS: Emergency Provider Emergency Medicine
DX: R42 Dizziness and giddiness (principal); R07.9 Chest pain, unspecified; Z57.5 Occupational exposure to toxic agents in other industries
CPT/HCPCS: 36415; 70450; 70548; 70553; 80053; 82550; 82553; 83690; 84443; 84484; 85025; 93005; 93010; 96361; 96374; 99284; 99285; A9579; J2060

== ENCOUNTER → 2024-05-08 13:57 | Outpatient (CLI) | payer OTHER, SELFPAY ==
[2024-05-08 14:55] LABS: Add Manual Diff / Slide Review NO; Basophils Absolute Auto 100 /uL (0-100); Basophils Percent Auto 0.5 % (0-2); Eosinophils Absolute Auto 200 /uL (0-450); Eosinophils Percent Auto 1.7 % (2-4); Hematocrit 35.9 % (36-46); Lymphocytes Absolute Auto 3100 /uL (1100-4500); Lymphocytes Percent Auto 27.9 % (25-40); Mean Corpuscular HGB Conc 33.6 % (30-36); Mean Corpuscular Hemoglobin 30.2 PG (26-34); Mean Corpuscular Volume 90.1 fL (80-100); Monocytes Absolute Auto 900 /uL (0-900); Monocytes Percent Auto 8.1 % (3-14); Neutrophils Absolute Auto 6800 /uL (1500-7000); Neutrophils Percent Auto 61.8 % (50-75); Platelet Count 267 X10^3/uL (150-400); Red Blood Cell Count 3.99 X10^6/uL (4.0-5.2); Red Cell Distribution Width 14.8 % (11.6-14.8); White Blood Cell Count 10.9 X10^3/uL (4.5-11.0)
[2024-05-08 15:04] LABS: Hemoglobin A1C% w Est Avg Glu 6.2 % (4.0-6.0)
[2024-05-08 15:29] LABS: Alanine Aminotransferase 26 IU/L (<35); Albumin 4.2 g/dL (3.5-5.0); Albumin Globulin Ratio 1.6 (1.0-2.8); Alkaline Phosphatase 118 U/L (38-126); Aspartate Aminotransferase 27 IU/L (14-36); BUN Creatinine Ratio 23.5 (6-22); Bilirubin Total 0.7 mg/dL (0.2-1.3); Blood Urea Nitrogen 27 mg/dL (7-17); Calcium 9.4 mg/dL (8.4-10.2); Carbon Dioxide 37 mmol/L (22-32); Chloride 103 mmol/L (98-107); Cholesterol 172 mg/dL (140-199); Estimated Glomerular Filt Rate 56 mL/min (>60); Globulin 2.7 g/dL (1.7-4.1); Glucose 101 mg/dL (70-100); HDL Cholesterol 60 mg/dL (40-60); HEMOLYSIS < 15 (0-50); LDL Cholesterol Calculated 69 mg/dL (<100); Sodium 143 mmol/L (137-145); Total Protein 6.9 g/dL (6.3-8.2); Triglycerides 213 mg/dL (35-150)
[2024-05-08 16:29] LABS: Free T4, Direct Thyroxine 0.71 ng/dL (0.78-2.19)
== END ==
PROVIDERS: Family Provider Orthopaedic Surgery; PCP Family Medicine; Referring Provider Family Medicine; Visit Provider Family Medicine
DX: E03.9 Hypothyroidism, unspecified (principal); Z13.6 Encounter for screening for cardiovascular disorders
CPT/HCPCS: 36415; 80053; 80061; 83036; 84439; 84443; 85025

== ENCOUNTER → 2024-05-21 10:32 | Outpatient (CLI) | payer SELFPAY | PROVIDERS: Family Provider Orthopaedic Surgery; PCP Family Medicine; Referring Provider Family Medicine; Visit Provider Family Medicine | DX: E66.01 Morbid (severe) obesity due to excess calories (principal); Z68.43 Body mass index [BMI] 50.0-59.9, adult ==

== ENCOUNTER → 2024-06-18 09:11 | Outpatient (CLI) | payer OTHER, SELFPAY ==
[2024-06-18 15:06] LABS: TSH w/ Reflex to FT4 6.31 uIU/mL (0.47-4.68)
[2024-06-18 15:31] LABS: Free T4, Direct Thyroxine 1.15 ng/dL (0.78-2.19)
== END ==
PROVIDERS: Family Provider Orthopaedic Surgery; PCP Family Medicine; Referring Provider Family Medicine; Visit Provider Family Medicine
DX: E03.9 Hypothyroidism, unspecified (principal)
CPT/HCPCS: 36415; 84439; 84443

== ENCOUNTER → 2024-08-05 10:13 | Outpatient (CLI) | payer OTHER, SELFPAY ==
[2024-08-05 11:18] LABS: Alanine Aminotransferase 33 IU/L (<35); Albumin 4.2 g/dL (3.5-5.0); Albumin Globulin Ratio 1.8 (1.0-2.8); Alkaline Phosphatase 114 U/L (38-126); Aspartate Aminotransferase 30 IU/L (14-36); BUN Creatinine Ratio 21.7 (6-22); Bilirubin Total 1.1 mg/dL (0.2-1.3); Blood Urea Nitrogen 23 mg/dL (7-17); Calcium 10.5 mg/dL (8.4-10.2); Carbon Dioxide 30 mmol/L (22-32); Chloride 102 mmol/L (98-107); Estimated Glomerular Filt Rate > 60 mL/min (>60); Globulin 2.4 g/dL (1.7-4.1); Glucose 102 mg/dL (70-100); HEMOLYSIS < 15 (0-50); Sodium 139 mmol/L (137-145); Total Protein 6.6 g/dL (6.3-8.2)
[2024-08-05 11:33] LABS: Hemoglobin A1C% w Est Avg Glu 5.8 % (4.0-6.0)
[2024-08-05 12:20] LABS: Thyroid Stimulating Hormone 1.37 uIU/mL (0.47-4.68)
== END ==
PROVIDERS: Family Provider Orthopaedic Surgery; PCP Family Medicine; Referring Provider Family Medicine; Visit Provider Family Medicine
DX: R94.4 Abnormal results of kidney function studies (principal); R73.03 Prediabetes; E66.01 Morbid (severe) obesity due to excess calories; Z68.43 Body mass index [BMI] 50.0-59.9, adult; I10 Essential (primary) hypertension; E03.9 Hypothyroidism, unspecified
CPT/HCPCS: 36415; 80053; 83036; 84443

== ENCOUNTER 2024-08-09 08:38 | Emergency (ER) | payer OTHER, SELFPAY ==
[2024-08-09 08:47] VITALS: BP 119/74; PULSE 79; RESP 16; TEMP 36.6; O2SAT 98; BMI 48.9
--- NOTE | 2024-08-09 08:54 | ED_ITS ---
HPI - Extremity Injury (Lower) General Chief Complaint: Extremity Injury, Lower Stated Complaint: left knee pain Time Seen by Provider: 08/09/24 08:52 Source: patient Mode of arrival: Wheelchair History of Present Illness HPI Narrative: Patient 54-year-old female with known bilateral knee issues and arthritis awaiting for total knee arthroplasty presents today with increased left knee pain. She reports that she was kneeling on an autoimmune yesterday she heard something pop and has been unable to weightbear since. She also has a extreme pain with full extension. She knows that she needs knee replacement she has used to pain use to crackles you still pops in her knee. She is still very mobile and active as much as she can be. She is lost 40 lb, still awaiting replacement surgery. However today she still just having increased pain. She has an appointment with her primary care provider in 2 days and she is appointment with her orthopedic surgeon in 5 days. She has knee braces crutches and pain medications at home. She came simply for an x-ray to make sure there was not any worsening damage. Related Data Home Medications Medication Instructions Recorded Confirmed liothyronine 5 mcg tablet 5 mcg PO DAILY 12/25/20 06/30/24 budesonide 32 mcg/actuation nasal 1 spray intranasal DAILY 12/10/23 06/30/24 spray hydrochlorothiazide 25 mg tablet 25 mg PO DAILY 12/10/23 06/30/24 oxygen-air delivery systems 12/10/23 06/30/24 Previous Rx's Medication Instructions Recorded meclizine 25 mg tablet 25 mg PO BID PRN dizziness #14 tabs 09/01/22 ondansetron 4 mg disintegrating 4 mg PO Q6H PRN nausea and 09/01/22 tablet vomiting #14 tabs albuterol sulfate 90 mcg/actuation 1 inh inhalation Q4-6H PRN 12/18/23 aerosol inhaler shortness of breath or wheezing #8.5 grams amlodipine 10 mg tablet 10 mg PO DAILY #90 tabs 12/18/23 atorvastatin 40 mg tablet 40 mg PO DAILY #90 tabs 12/18/23 benzonatate 100 mg capsule 100 mg PO TID PRN cough #30 caps 12/18/23 lisinopril 40 mg tablet 40 mg PO DAILY #90 tabs 12/18/23 gabapentin 300 mg capsule 300 mg PO TID #90 caps 04/09/24 levothyroxine 175 mcg tablet 175 mcg PO DAILY #90 tabs 06/20/24 phentermine 30 mg capsule 30 mg PO DAILY #45 caps 06/30/24 aspirin 81 mg tablet,delayed 81 mg PO DAILY #90 tabs 07/07/24 release (Adult Aspirin Regimen) Allergies Allergy/AdvReac Type Severity Reaction Status Date / Time phenylephrine AdvReac Headache Verified 08/09/24 08:54 pseudoephedrine AdvReac Headache Verified 08/09/24 08:54 [From [facility]] Patient History Medical History History of prediabetes URI (upper respiratory infection) History of concussion Asthma Lumbar radiculopathy LUIZ (obstructive sleep apnea) Close exposure to 2019 novel coronavirus Hyperlipidemia Hypertension Hypothyroid Surgical History History of surgery on wrist History of tonsillectomy and adenoidectomy History of left knee surgery History of carpal tunnel release Social History details: partner number of children: 0 Smoking Status: Never smoker Smoking Status: Never smoker alcohol intake frequency: holidays/special occasions only Substance Use Type: does not use Exam Initial Vital Signs Initial Vital Signs: Vital Signs Temperature 98 F 08/09/24 08:47 Pulse Rate 79 08/09/24 08:47 Respiratory Rate 16 08/09/24 08:47 Blood Pressure 119/74 08/09/24 08:47 Pulse Oximetry 98 08/09/24 08:47 Oxygen Delivery Method Room Air 08/09/24 08:47 GENERAL: Well-appearing, well-nourished and in no acute distress. CARDIOVASCULAR: peripheral pulses in tact, cap refill <2 sec RESPIRATORY: No respiratory distress, speaks in full sentences without difficulty EXTREMITIES: Normal range of motion, no clubbing or edema. Neurovascularly intact Left knee is held slightly flexed knee is stable but pain with lateral stress negative anterior-posterior drawer. She has some pain laterally. NEUROLOGICAL: Cranial nerves II through XII grossly intact. Normal gait and speech. SKIN: Warm, dry, no petechiae, no rashes or lesions. Course Orders Ordered: ED Orders 08/09/24 08:55 XR knee LT 3V Stat Vital Signs Vital signs: Vital Signs - 8 hr 08/09/24 08:47 Temperature 98 F Pulse Rate 79 Respiratory Rate 16 Blood Pressure 119/74 Pulse Oximetry 98 Oxygen Delivery Method Room Air MDM - Extremity Injury (Lower) Imaging Data Extremity x-ray #1: Radiologist's Impression: PROCEDURE: XR KNEE LT 3V INDICATIONS: injury TECHNIQUE: 3 views of the knee were acquired. COMPARISON: [facility], CR, XR KNEE ARTHRITIC SERIES , 02/21/2024, 11:34. FINDINGS: Bones: No fractures or dislocations. No suspicious bony lesions. Stable appearance of moderate-severe tricompartmental osteoarthrosis. Soft tissues: Moderate joint effusion. No suspicious soft tissue calcifications. IMPRESSION: No acute bony abnormality. Moderate-severe tricompartmental osteoarthrosis not significantly changed. Moderate joint effusion. If there are persistent symptoms or clinical suspicion for pathology, then repeat radiographs or advanced imaging (CT or MRI) may be considered for further evaluation. Dictated by: Heladio Pretson M.D. on 08/09/2024 at 9:00 [facility] Narrative Medical decision making narrative: Well-appearing 54-year-old female with known osteoarthritis in need badly of any replacement presenting today with left he injury and increased pain. She has everything she is at home just awaiting x-ray. X-ray results show chronic tricompartmental osteoarthrosis not changed with joint effusion. Patient has often she needs home, with good follow-up next week Discharge Plan Departure Patient Disposition: Home Clinical Impression: Knee osteoarthritis Activity Restrictions/Additional Instructions: So nice to meet you today Your x-ray looks the same you do have some fluid around your knee. Please follow-up with your providers next week as scheduled Elevate ice wear knee brace, use crutches as needed Return to ER if you should have new or worsening symptoms Prescriptions: No Action hydrochlorothiazide 25 mg tablet 25 mg PO DAILY budesonide 32 mcg/actuation spray,non-aerosol 1 spray intranasal DAILY Rx Instructions: administer into each nostril (DME) oxygen-air delivery systems Device See Rx Instructions .Route Rx Instructions: As directed amlodipine 10 mg tablet 10 mg PO DAILY Qty: 90 2RF atorvastatin 40 mg tablet 40 mg PO DAILY Qty: 90 2RF lisinopril 40 mg tablet 40 mg PO DAILY Qty: 90 2RF albuterol sulfate 90 mcg/actuation HFA aerosol inhaler 1 inh inhalation Q4-6H PRN (Reason: shortness of breath or wheezing) Qty: 8.5 2RF benzonatate 100 mg capsule 100 mg PO TID PRN (Reason: cough) Qty: 30 0RF gabapentin 300 mg capsule 300 mg PO TID Qty: 90 2RF levothyroxine 175 mcg tablet 175 mcg PO DAILY Qty: 90 0RF aspirin [Adult Aspirin Regimen] 81 mg tablet,delayed release (DR/EC) 81 mg PO DAILY Qty: 90 3RF phentermine 30 mg capsule 30 mg PO DAILY Qty: 45 0RF Rx Instructions: must administer 2 hours after breakfast meclizine 25 mg tablet 25 mg PO BID PRN (Reason: dizziness) Qty: 14 0RF ondansetron 4 mg tablet,disintegrating 4 mg PO Q6H PRN (Reason: nausea and vomiting) Qty: 14 0RF liothyronine 5 mcg Tablet 5 mcg PO DAILY Referrals: Zo Anderson DO [Primary Care Provider] - Stand Alone Forms: Patient Portal/API
== END 2024-08-09 10:17 | disposition home or self-care (01) ==
PROVIDERS: Emergency Provider Emergency Medicine; Family Provider Orthopaedic Surgery; PCP Family Medicine
DX: Z79.899 Other long term (current) drug therapy (principal); M17.12 Unilateral primary osteoarthritis, left knee
CPT/HCPCS: 73562; 99283

== ENCOUNTER → 2024-08-14 10:19 | Outpatient (CLI) | payer OTHER, SELFPAY ==
[2024-08-14 10:47] LABS: Add Manual Diff / Slide Review NO; Basophils Absolute Auto 0 /uL (0-100); Basophils Percent Auto 0.3 % (0-2); Eosinophils Absolute Auto 100 /uL (0-450); Eosinophils Percent Auto 1.2 % (2-4); Hemoglobin 12.5 g/dL (12.0-16.0); Lymphocytes Absolute Auto 1900 /uL (1100-4500); Lymphocytes Percent Auto 24.3 % (25-40); Mean Corpuscular HGB Conc 33.7 % (30-36); Mean Corpuscular Hemoglobin 30.5 PG (26-34); Mean Corpuscular Volume 90.6 fL (80-100); Monocytes Absolute Auto 600 /uL (0-900); Monocytes Percent Auto 7.5 % (3-14); Neutrophils Absolute Auto 5100 /uL (1500-7000); Neutrophils Percent Auto 66.7 % (50-75); Platelet Count 261 X10^3/uL (150-400); Red Blood Cell Count 4.08 X10^6/uL (4.0-5.2); Red Cell Distribution Width 13.9 % (11.6-14.8); White Blood Cell Count 7.7 X10^3/uL (4.5-11.0)
[2024-08-14 11:06] LABS: Hemoglobin A1C% w Est Avg Glu 5.8 % (4.0-6.0)
[2024-08-14 11:11] LABS: Appearance Urine UA CLEAR; Bilirubin Urine UA NEGATIVE (NEGATIVE); Color Urine UA YELLOW; Glucose Urine UA NEGATIVE (Negative); Ketones Urine UA NEGATIVE (NEGATIVE); Leukocyte Esterase Urine UA 2+ (NEGATIVE); Nitrite Urine UA NEGATIVE (Negative); Occult Blood Urine UA NEGATIVE (Negative); Protein Urine UA NEGATIVE (Negative); Urobilinogen Urine UA 0.2 E.U./dL (0.2)
--- NOTE | 2024-08-14 11:12 | EKG_ITS ---
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
[2024-08-14 11:13] LABS: BUN Creatinine Ratio 15.4 (6-22); Blood Urea Nitrogen 18 mg/dL (7-17); Calcium 10.5 mg/dL (8.4-10.2); Carbon Dioxide 32 mmol/L (22-32); Chloride 100 mmol/L (98-107); Estimated Glomerular Filt Rate 55 mL/min (>60); Glucose 104 mg/dL (70-100); HEMOLYSIS < 15 (0-50); Potassium 4.1 mmol/L (3.4-5.1); Sodium 137 mmol/L (137-145)
[2024-08-14 11:18] LABS: Bacteria Urine Few (2-10); RBC Urine 1-5/HPF (0-5/HPF); Squamous Epithelial Cell Urine 1-5 /HPF (0-5/HPF); Urine Volume 10mL (spun); WBC Urine 1-5/HPF (0-5/HPF)
[2024-08-14 11:19] LABS: Culture Indicated Urine Specimen Cultured
== END ==
LOC: LAB 10:20
PROVIDERS: Family Provider Orthopaedic Surgery; PCP Family Medicine; Referring Provider Orthopaedic Surgery; Visit Provider Orthopaedic Surgery
DX: Z01.818 Encounter for other preprocedural examination (principal); Z01.812 Encounter for preprocedural laboratory examination; R73.9 Hyperglycemia, unspecified; N39.0 Urinary tract infection, site not specified
CPT/HCPCS: 36415; 80048; 81001; 83036; 85025; 87086; 93005

== ENCOUNTER 2024-09-16 06:18 | Day surgery (SDC) | payer OTHER, SELFPAY ==
[2024-09-05 12:32] VITALS: BMI 47.9
[2024-09-16] VITALS (11 sets, daily range): BP systolic 95–126; BP diastolic 46–86; PULSE 79–96; RESP 13–18; TEMP 36.1–37.3; O2SAT 92–100; BMI 46.5
--- NOTE | 2024-09-16 06:00 | DI.RAD.S_ITS ---
PROCEDURE: XR KNEE LT 1TO2V INDICATIONS: tka TECHNIQUE: 2 view(s) of the knee acquired. COMPARISON: None. FINDINGS: Bones: Patient is status post knee joint arthroplasty. Hardware components are in expected positions. Visualized bony structures are intact. Soft tissues: Overlying postoperative changes are noted. IMPRESSION: Expected post-operative appearance of a knee arthroplasty. Dictated by: Ginny Cash MD, PhD on 09/16/2024 at 11:56 Approved by: Ginny Cash MD, PhD on 09/16/2024 at 11:57
[2024-09-16] MEDS: VANCOMYCIN 2,000 MG/400 ML PIGGYBACK 200 MG IV (06:45)
[2024-09-16] MEDS: LACTATED RINGERS 1,000 ML 42 ML IV (07:13)
[2024-09-16] MEDS: ACETAMINOPHEN 325 MG TABLET 975 MG PO (07:14)
[2024-09-16] MEDS: CELECOXIB 200 MG CAPSULE 400 MG PO (07:14)
--- NOTE | 2024-09-16 07:55 | PM.PREOP ---
Pre-operative Note Interval Note History & Physical reviewed/Exam performed by Physician: Yes Changes to H&P: No
--- NOTE | 2024-09-16 07:55 | PM.OP.1 ---
Operative Date/Time/Diagnoses Date of procedure: 09/16/24 Time of procedure: 07:56 Pre-op diagnosis: Left knee OA Post-op diagnosis: same Procedure & Clinicians Procedure: Left total knee arthroplasty Same procedure as scheduled: Yes Indications: The patient has had progressively worsening left knee pain with radiographic changes consistent with arthritis. Non-operative management has failed and the patient has requested total knee replacement. The risks, benefits and alternatives to surgery were discussed with the patient prior to proceeding. Risks discussed included, but were not limited to, failure to relieve pain, stiffness, infection, nerve damage, deep venous thrombosis, pulmonary embolism, stroke, coma, heart attack, permanent paralysis and , as well as the potential need for eventual revision of the prosthetic. Surgeon: Jelena Rosales Machine Or Machinery Mechanic: Cheikh Gonzales Anesthesia Type: General and Peripheral nerve block Operative Notes Findings: Severe left knee OA, adequate stability, adequate bone Closure Type: primary Specimen(s): none sent Prosthetic devices, grafts, tissues, transplants, or devices: Rosales and nephmichelle cortez BCS2 size femur 6, size 5 tibia, 32 x 7-1/2 mm patella, +9 poly Estimated Blood Loss (mL): 250 Blood products transfused: none Tourniquet time (min): 128 Procedure in detail: The patient was seen in the pre-operative area, where the patient identified the left knee as the operative site and this was marked with my initials. The patient received pre-operative antibiotics, and was taken to the operating room and placed on the operative table in the supine position. After satisfactory anesthesia, a time motion analyst out was performed. The left leg was encircled with a tourniquet about the proximal thigh, and the leg was prepared from the toes to the tourniquet with ChloroPrep in the usual fashion and draped through sterile drapes. The leg was elevated and exsanguinated with Eschmark bandage and the tourniquet inflated to [250] mmHg pressure. A PA was used during the procedure was essential for intraoperative retraction safe implantation of the components. The knee was approached through an approximately 18 cm incision centered over the patella and carried into the knee through a medial parapatellar arthrotomy. Portion of the medial and lateral meniscus was resected. Soft tissue was carefully mobilized around the patella the patella was measured with a caliper. She had severe patella [place] and the patella was finished sequentially. Initially I just trim some of the patella and mobilize the patella as well as resecting multiple osteophytes from around the femur in order to allow adequate mobilization of the knee. Her preoperative flexion was less than 90?. She had about a 15 degree flexion contracture. That and her morbid obesity made the procedure quite a bit more technically demanding and resulted in a more prolonged tourniquet time. Bone was resected from the patella and the patellar height was reconstituted with up an appropriate sized patellar component. A cover was then placed on the patella. A small amount of additional medial and lateral meniscus was resected. Cori pins were placed in the femur for navigation. The knee was meticulously navigated using the Cori robotic navigational assistance. The femur and the tibia were carefully mapped and patient was placed through a range of motion was stressed and unstressed range motion curves. A plan was taken and improved. The Cori robotic bur was used for the distal femoral resection. It looked like an appropriate distal femoral cut and the cut was made without difficulty. The rotation was assessed and the appropriate size femoral guide was placed on the distal femur and finishing cuts were made. There was no evidence of notching. The anterior, posterior and chamfer cuts were then made. The posterior osteophytes and soft tissues were then removed. The posterior capsule was injected with part of a mixture of 60 ml 0.25% Marcaine mixed with 266 mg Exparel for post operative pain control. The remainder of this mixture was injected into the capsule and subcutaneous tissues during cement curing. The tibia was carefully navigated in order to optimize the tibial cut. The cut was made without difficulty. The rotation was assessed. The patient was placed in extension residual medial and lateral meniscus as well as any residual bone was carefully resected. [No] additional tibia was resected. Hemostasis was achieved especially posteriorly. Additional local was injected into the posterior capsule. The femoral component was trial was placed and the notch was finished. Trial tibial and femoral components were then placed and the knee placed through a range of motion. We also used the nonconstrained liner during trialing due to tightness between the knee, obesity and residual severe patellofemoral tightness. Range of motion was [0-130], with good stability throughout the range. The trials were then removed, and the tibia was finished. The bone was prepared with pulsatile lavage, and dried with a sponge. Cement was applied and the final prosthetics placed. Excess cement was removed during and after cement curing. A brief Betadine soak was performed. After confirming there was no extruded cement posteriorly, the final tibial insert was placed. The knee was copiously irrigated and the tourniquet deflated. Hemostasis was obtained with the Bovie cautery. The capsule was closed with interrupted # 1 Vicryl suture. The subcutaneous layer was closed with barbed sutures, and the skin with a running 3-0 V-Lock suture and skin marisol. A shannan dressing was applied and the patient was taken to recovery having tolerated the procedure well. Complications: none Post-operative Condition: stable Disposition: Acute Care Plan for aftercare: The patient will be maintained on a standard total knee replacement protocol with weight bearing as tolerated. The patient will receive aspirin and sequential compression devices for DVT prophylaxis. The patient will be discharged home when safe for the home environment.
[2024-09-16] MEDS: CEFAZOLIN VIAL 3 GM in SODIUM CHLORIDE 0.9% 100 ML IV (08:13)
--- NOTE | 2024-09-16 08:38 | SUR.OPER ---
Supine on padded OR bed. Pillow under head, arms secured on padded armboards <90 degree abduction. Safety belt across torso. Non-operative leg secured with tape over blanket over lower leg. Operative leg secured in [place]Mayo/[place]/Nathe positioner. Foam padded brace at thigh of operative leg.
[2024-09-16] MEDS: TRANEXAMIC ACID 1,000 MG VIAL 2000 MG INJ ×2 (08:44→10:31)
[2024-09-16] MEDS: BUPIVACAINE 0.25% (PF) 60 ML, EPINEPHrine 0.3 MG INJ (08:45)
[2024-09-16] MEDS: BUPIVACAINE LIPOSOME 266 MG/20 ML VIAL INJ (08:46)
--- NOTE | 2024-09-16 10:09 | SUR.PREOP ---
Block start time 0749 with a time out. Monitoring initiated and maintained throughout procedure. Oxygen given per anesthesiologist instructions, meds by anesthesia provider. Patient remained stable throughout procedure, no adverse reactions noted. Block end time 0753.
[2024-09-16] MEDS: OXYCODONE IR 5 MG TABLET PO ×2 (12:00→12:58)
[2024-09-16] MEDS: hydrOXYzine HCL 25 MG TABLET PO (12:07)
[2024-09-16] MEDS: METOCLOPRAMIDE 10 MG/2 ML INJ IV (13:48)
--- NOTE | 2024-09-16 14:35 | PT.IIE ---
Current Diagnoses Unilateral primary osteoarthritis, left knee (09/16/24) Surgery Performed Operation Date: 09/16/24 07:45 Actual Procedures p Total Knee Arthroplasty - Robot(Left) - Jelena Rosales MD Surgical History (Last Updated 09/05/24 @ 12:38 by Mercedes Head, BOBBY) History of carpal tunnel release History of left knee surgery History of surgery on wrist History of tonsillectomy and adenoidectomy Medical History (Last Updated 09/02/24 @ 14:42 by Zo Anderson DO) Asthma Close exposure to 2019 novel coronavirus History of concussion History of prediabetes Hyperlipidemia Hypertension Hypothyroid Lumbar radiculopathy Morbid obesity with BMI of 50.0-59.9, adult LUIZ (obstructive sleep apnea) URI (upper respiratory infection) Physical Therapy Inpatient Evaluation/Re-Eval M1 PT/OT-IP Prior Functional Status Start: 09/16/24 16:03 Freq: NEEDED Status: Active Protocol: Document 09/16/24 14:35 AB (Rec: 09/16/24 16:18 AB [id number]) Medical Review Prior Functional Status Medical History Reviewed Yes Communication able to make needs known; pt drowsy Mobility and Gait pt stated that she was independent with all mobilities and ambulation without AD Social History Household Members significant other Living Arrangements RV Number of Floors (Floors) One Floor Number of Stairs To Enter/Railing? 5 steps to enter with L rail ascending Home Environment High Toilet,Walk in Shower Home Equipment Front Wheel Walker,Quad Cane, Crutches,Bedside Commode, Shower Seat with Backrest M2 PT-IP Current Condition Start: 09/16/24 16:03 Freq: NEEDED Status: Active Protocol: Document 09/16/24 14:35 AB (Rec: 09/16/24 16:18 AB [id number]) Physical Therapy Current Condition Current Condition Evaluation Date 09/16/24 Treatment Diagnosis s/p L TKA; difficulty in walking Onset Date 09/16/24 M3 PT-IP Subjective Start: 09/16/24 16:03 Freq: NEEDED Status: Active Protocol: Document 09/16/24 14:35 AB (Rec: 09/16/24 16:18 AB [id number]) Subjective Physical Therapy Visit Type Type Initial Evaluation Visit Start Time 14:35 Visit Stop Time 15:41 Number of NEON LIGHT INSTALLER Visits 0 Physical Therapy Visit Comments Patient Comments agreeable to do PT Therapy Pain Assessment Pain When Pain Assessed During Mobility Pain Present Pain Present Pain Reported Location Left Knee Intensity 3 Scale Used Numeric (0 - 10) Pain Management Techniques Distraction,Modification of Treatment,Re-positioning M4 PT-IP Mobility and Gait Start: 09/16/24 16:03 Freq: NEEDED Status: Active Protocol: Document 09/16/24 14:35 AB (Rec: 09/16/24 16:18 AB [id number]) PT-Bed Mobility Assessment Supine to Sit Supine to Sit Standby Assistance PT-Transfer Assessment Sit to and From Stand Sit to and from Stand Contact Guard Assistance,1 Person Assistance,Use of Upper Extremities Equipment Transfer Assistive Device Gait Belt,Front Wheeled Walker Orthotic/Prosthetic Devices or Brace: No Transfers Transfer Destination Chair Transfer Technique ambulated Transfer Ability Level of Assist Contact Guard Assistance,1 Person Assistance,Use of Upper Extremities Comments Mobility Comments pt seen in PACU. pt in bed and SO in with pt. pt is drowsy and needs cues to stay awake but able to answer question. obtained PLOF and home setup. post-op folder provided and reviewed contents . educated pt on HEP. BP in supine: 123/68 . pt sat on EOB SBA. BP rechecked: 121/68. pt completed sit to stand CGA and ambulated ~ 20 ft using FWW CGA. slow paced gait and cued for L quads activation. pt sat on the chair. c/o dizziness/lightheadedness. BP checked: 88/53. nurse informed and re-checked BP: 117/71. Caregiver training conducted. educated SO on how to use safety belt and how to assist pt. SO was able to put safety belt on pt. assisted pt with LB dressing. sit to stand from chair with SO assisting and PT assisted with pants management. pt ambulated with SO into the w/c using FWW CGA ~ 10 ft. stair climbing training in acute floor with PACU nurse present: educated pt and SO on how to do stairs. pt completed up/down steps holding on to L rail with B hands min A and max cues. pt with slight L knee buckling with descending steps. cued pt for LLE positioning and quads activation. SO was able to assist pt. educated pt on safety and car transfers. pt and SO without further concerns. assist pt back to PACU floor. Left pt with nuse. Gait Assessment Gait Gait Assistance Required: Contact Guard Assist,1 Person Assist Distance (Feet) 20 Able to Maintain Weight Bearing Status Yes During Gait Assistive Devices Assistive Device Gait Belt,Front Wheeled Walker Orthotic/Prosthetic Devices or Brace: No Gait Deviations General Gait Pattern Antalgic,Decreased Stride Length,Decreased Feet Clearance Factors Limiting Gait Function Factors Limiting Gait Function Decreased Activity Tolerance, Decreased Strength,Limited Range of Motion,Pain,Poor Balance,Poor Safety Awareness Stair Climbing Assessment Evaluation Level of Assist On Stairs Minimal Assistance,1 Person Assistance Devices Stair Climbing Assistive Devices Left Railing Technique/Endurance Stair Climbing Direction Ascend and Descend Stair Climbing Technique Step to Step Number of Steps Climbed 3 Query Text: Stair Climbing Set # Repetitions (reps) 1 PT-Balance Assessment Sitting Balance and Reactions Static Sitting Balance Ability Normal Dynamic Sitting Balance Ability Good Standing Balance and Reactions Static Standing Balance Ability Fair Dynamic Standing Balance Ability Fair Device Used FWW M5 PT-IP Objective Assessments Start: 09/16/24 16:03 Freq: NEEDED Status: Active Protocol: Document 09/16/24 14:35 AB (Rec: 09/16/24 16:18 AB [id number]) Orientation Orientation/Cognition Level of Alertness Alert Orientation Name,Place,Situation Language Function Ability No Deficits Noted Safety Awareness Decreased Safety Awareness Memory Description No Deficits Noted Gross Range of Motion Lower Extremity ROM Impairments L knee flexion: ~ 80 deg L knee extension: ~ 15 deg less to 0 Strength Lower Extremity Strength Assessment Left Impaired Hip 4-/5 Knee 3+/5 Coordination Assessment Gross Coordination Gross Coordination WNL Sensation Assessment Sensation Gross Sensation WNL Muscle Tone Muscle Tone WNL Yes M6 PT-IP Treatment Start: 09/16/24 16:03 Freq: NEEDED Status: Active Protocol: Document 09/16/24 14:35 AB (Rec: 09/16/24 16:18 AB [id number]) Physical Therapy Treatment Exercises Exercises Heel Slides Education Education Provided Precautions,Weight Bearing Status,Post-Op Packet,Safety M7 PT-IP Assessment and Plan Start: 09/16/24 16:03 Freq: NEEDED Status: Active Protocol: Document 09/16/24 14:35 AB (Rec: 09/16/24 16:18 AB [id number]) PT Summary Assessment and Plan Potential Rehabilitation Potential Good Status of Condition at Evaluation Evolving Summary Impairments Pain,ROM,Strength,Balance, Coordination,Sensation,Tone, Cognition,Bed Mobility, Transfers,Gait,Activity Tolerance Assessment Summary pt is a 54 y/o F s/p LTKA POD 0. pt seen in PACU and plans to d/c. pt requiring CGA for transfers and ambulation using FWW and min A for stair climbinig with cues. caregiver training conducted and SO was able to assist pt. pt has outpt PT set up. Goals Bed Mobility Goal Independent Transfer Goal Independent,Front Wheeled Walker Gait Goal Independent,Front Wheel Walker Gait Distance 200 Other Goals up/down 5 steps L rail ascending SBA Days to Meet Goals 5 Frequency of Treatment Frequency Of Treatment Twice a Day Treatment Plan Physical Therapy Treatment Plan Bed Mobility Training,Transfer Training,Gait Training, Therapeutic Exercise,Balance Retraining,Post Op Education, Discharge Planning,Hot or Cold Pack,Neuromuscular Re-ed, Coordination Retraining,Manual Therapy Weight Bearing Status Weight Bearing Status Weight Bear as Tolerated Allowed Weight Bearing Amount (enter % LLE WBAT or #) (%) Recommendations To Nursing Amount of Assist Needed 1 Person Assist Discharge Recommendations PT Discharge Recommendations Home with Assistance, Outpatient PT Transportation Needs at Discharge Private Vehicle
== END 2024-09-16 16:02 | disposition home or self-care (01) ==
LOC: OR 06:19 → AC 06:23 → OR 07:13 → AC 07:13
PROVIDERS: Family Provider Orthopaedic Surgery; PCP Family Medicine; Referring Provider Orthopaedic Surgery; Visit Provider Orthopaedic Surgery
PROC: 0SRD0JZ Replacement of Left Knee Joint with Synthetic Substitute, Open Approach (ICD-10-PCS; CPT 27447; principal; 2024-09-16 07:45)
DX: M17.12 Unilateral primary osteoarthritis, left knee (principal); G89.18 Other acute postprocedural pain; M25.762 Osteophyte, left knee
CPT/HCPCS: 27447; 64450; 73560; 97162; 97530; C1776; A9270; C9290; J0171; J0690; J1100; J2250; J2405; J2704; J2765; J3010

== ENCOUNTER 2024-11-13 06:06 | Day surgery (SDC) | payer OTHER, SELFPAY ==
[2024-11-07 08:26] VITALS: BMI 47.7
[2024-11-13] VITALS (7 sets, daily range): BP systolic 93–123; BP diastolic 61–79; PULSE 68–88; RESP 12–16; TEMP 36.1–36.2; O2SAT 98–100; BMI 47.7
--- NOTE | 2024-11-13 06:00 | DI.RAD.S_ITS ---
PROCEDURE: XR KNEE RT 1TO2V INDICATIONS: TKA TECHNIQUE: 2 view(s) of the knee acquired. COMPARISON: [facility], CR, XR KNEE LT 1TO2V, 09/16/2024, 11:29. FINDINGS: Bones: Patient is status post knee joint arthroplasty. Hardware components are in expected positions. Visualized bony structures are intact. Soft tissues: Overlying postoperative changes are noted. IMPRESSION: Expected immediate postoperative appearance, status post total right knee arthroplasty. Dictated by: Jesse Silva M.D. on 11/13/2024 at 11:48 Approved by: Jesse Silva M.D. on 11/13/2024 at 11:48
[2024-11-13] MEDS: CELECOXIB 200 MG CAPSULE 400 MG PO ×2 (07:20)
[2024-11-13] MEDS: ACETAMINOPHEN 325 MG TABLET 975 MG PO (07:20)
[2024-11-13] MEDS: VANCOMYCIN 1,000 MG/200 ML PIGGYBACK 200 MG IV (07:22)
--- NOTE | 2024-11-13 07:33 | PM.PREOP ---
Pre-operative Note Interval Note History & Physical reviewed/Exam performed by Physician: Yes Changes to H&P: No
--- NOTE | 2024-11-13 07:34 | P.OP_ITS ---
Operative Date/Time/Diagnoses Date of procedure: 11/13/24 Time of procedure: 07:50 Pre-op diagnosis: right knee OA Post-op diagnosis: same Procedure & Clinicians Procedure: Right total knee arthroplasty Same procedure as scheduled: Yes Indications: The patient has had progressively worsening right knee pain with radiographic changes consistent with arthritis. Non-operative management has failed and the patient has requested total knee replacement. The risks, benefits and alternatives to surgery were discussed with the patient prior to proceeding. Risks discussed included, but were not limited to, failure to relieve pain, stiffness, infection, nerve damage, deep venous thrombosis, pulmonary embolism, stroke, coma, heart attack, permanent paralysis and , as well as the potential need for eventual revision of the prosthetic. Surgeon: Jelena Rosales High Pressure Boiler Operator: Juancarlos Doe Anesthesia Type: Spinal, Sedation and Peripheral nerve block Operative Notes Findings: Severe right knee OA Closure Type: primary Specimen(s): none sent Prosthetic devices, grafts, tissues, transplants, or devices: Rosales and nephew dana BCS 2, size 6 femur, size 5 tibia, 32 x 7-1/2 mm, poly size 9 Estimated Blood Loss (mL): 250 Blood products transfused: none Tourniquet time (min): 120 Procedure in detail: The patient was seen in the pre-operative area, where the patient identified the right knee as the operative site and this was marked with my initials. The patient received pre-operative antibiotics, and was taken to the operating room and placed on the operative table in the supine position. After satisfactory anesthesia, a radio time sales supervisor out was performed. The right leg was encircled with a tourniquet about the proximal thigh, and the leg was prepared from the toes to the tourniquet with ChloroPrep in the usual fashion and draped through sterile drapes. The leg was elevated and exsanguinated with Eschmark bandage and the tourniquet inflated to [250] mmHg pressure. A PA was used during the procedure and was essential for intraoperative retraction and safe implantation of the components. The knee was approached through an approximately 18 cm incision centered over th e patella and carried into the knee through a medial parapatellar arthrotomy. Portion of the medial and lateral meniscus was resected. Soft tissue was carefully mobilized around the patella the patella was measured with a caliper. She had moderate patella [place]. I mobilized the patella as well as resecting multiple osteophytes from around the femur in order to allow adequate mobilization of the knee. Her preoperative flexion was less than 110?. She had about a 10 degree flexion contracture. That and her morbid obesity made the procedure quite a bit more technically demanding and resulted in a more prolonged tourniquet time. Bone was resected from the patella and the patellar height was reconstituted with up an appropriate sized patellar component. A cover was then placed on the patella. A small amount of additional medial and lateral meniscus was resected. Cori pins were placed in the femur for navigation. The knee was meticulously navigated using the AIRTAMEi robotic navigational assistance. The femur and the tibia were carefully mapped and patient was placed through a range of motion was stressed and unstressed range motion curves. A plan was taken and improved. The Cori robotic bur was used for the distal femoral resection. It looked like an appropriate distal femoral cut and the cut was made without difficulty. The rotation was assessed and the appropriate size femoral guide was placed on the distal femur and finishing cuts were made. There was no evidence of notching. The anterior, posterior and chamfer cuts were then made. The posterior osteophytes and soft tissues were then removed. The posterior capsule was injected with part of a mixture of 60 ml 0.25% Marcaine mixed with 266 mg Exparel for post operative pain control. The remainder of this mixture was injected into the capsule and subcutaneous tissues during cement curing. The tibia was carefully navigated using the navigational guide. It was pinned to the tibia. The rotation was assessed. The patient was placed in extension residual medial and lateral meniscus as well as any residual bone was carefully resected. It looked like the tibia was just a little bit under resected. Hemostasis was achieved especially posteriorly. Additional local was injected into the posterior capsule. The extension gap was assessed The femoral component was trial was placed and the notch was finished. Trial tibial and femoral components were then placed and the knee placed through a range of motion. Range of motion was [0-130], with good stability throughout the range. It was fairly clear that the gap was a little tight both in flexion and extension. Ebony that the tibia was under resected by at least a half to 1 mm. I checked with the Pocket Gemsa cutter and there was some residual green bone and a small amount of residual blue bone on the tibia. I used the bur all to resect the tibia down to the planned cut. The tibia was finished. The bone was prepared with pulsatile lavage, and dried with a sponge. Cement was applied and the final prosthetics placed. Excess cement was removed during and after cement curing. A brief Betadine soak was performed. After confirming there was no extruded cement posteriorly, the final tibial insert was placed. The knee was copiously irrigated and the tourniquet deflated. Hemostasis was obtained with the Bovie cautery. The capsule was closed with interrupted # 1 vicryl suture. The subcutaneous layer was closed with barbed sutures, and the skin with a running 3-0 V-Lock suture and Surgical glue. An Aquacel Ag dressing was applied and the patient was taken to recovery having tolerated the procedure well. Complications: none Post-operative Condition: stable Disposition: Acute Care Plan for aftercare: The patient will be maintained on a standard total knee replacement protocol with weight bearing as tolerated. The patient will receive aspirin and sequential compression devices for DVT prophylaxis. The patient will be discharged home when safe for the home environment.
[2024-11-13] MEDS: CEFAZOLIN VIAL 3 GM in SODIUM CHLORIDE 0.9% 100 ML IV (08:20)
[2024-11-13] MEDS: BUPIVACAINE LIPOSOME 266 MG/20 ML VIAL INJ ×2 (08:43)
[2024-11-13] MEDS: TRANEXAMIC ACID 1,000 MG VIAL 1000 MG INJ (08:43)
[2024-11-13] MEDS: BUPIVACAINE 0.25% (PF) 60 ML, EPINEPHrine 0.3 MG INJ (08:44)
[2024-11-13] MEDS: LACTATED RINGERS 1,000 ML 42 ML IV (09:09)
[2024-11-13] MEDS: ONDANSETRON 4 MG ODT PO (12:09)
[2024-11-13] MEDS: LACTATED RINGERS 1,000 ML 100 ML IV (12:10)
[2024-11-13] MEDS: IBUPROFEN 400 MG TABLET PO (12:41)
[2024-11-13] MEDS: ACETAMINOPHEN 325 MG TABLET 650 MG PO (12:41)
[2024-11-13] MEDS: OXYCODONE IR 5 MG TABLET PO (12:43)
--- NOTE | 2024-11-13 13:05 | PT.IIE ---
Current Diagnoses Bilateral primary osteoarthritis of knee (11/13/24) Surgery Performed Operation Date: 11/13/24 07:45 Actual Procedures p Total Knee Arthroplasty - Robot(Right) - Jelena Rosales MD Surgical History (Last Updated 11/07/24 @ 08:26 by Mercedes Head, BOBBY) History of carpal tunnel release History of left knee surgery History of surgery on wrist History of tonsillectomy and adenoidectomy History of total left knee replacement (09/16/24) Medical History (Last Updated 09/02/24 @ 14:42 by Zo Anderson DO) Asthma Close exposure to 2019 novel coronavirus History of concussion History of prediabetes Hyperlipidemia Hypertension Hypothyroid Lumbar radiculopathy Morbid obesity with BMI of 50.0-59.9, adult LUIZ (obstructive sleep apnea) URI (upper respiratory infection) Physical Therapy Inpatient Evaluation/Re-Eval M1 PT/OT-IP Prior Functional Status Start: 11/13/24 12:02 Freq: NEEDED Status: Active Protocol: Document 11/13/24 12:13 MB (Rec: 11/13/24 13:05 [id number]) Medical Review Prior Functional Status Medical History Reviewed Yes Diet/Fluid Consistency Regular Communication WNLs Mobility and Gait I with LRAD, cane vs walker since left TKR 8 weeks ago and need for right TKR Activities of Daily Living and IADL's 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 4 steps with B rail to enter trailer Home Environment Standard Height Toilet,Walk in Shower Home Equipment Front Wheel Walker,Straight Cane,Bedside Commode,Shower Seat without Backrest Additional Social History Comment High step into small shower, she can reach sink on toilet and touch sides of shower M2 PT-IP Current Condition Start: 11/13/24 12:02 Freq: NEEDED Status: Active Protocol: Document 11/13/24 12:13 MB (Rec: 11/13/24 13:05 [id number]) Physical Therapy Current Condition Current Condition Evaluation Date 11/13/24 Treatment Diagnosis Right TKR M3 PT-IP Subjective Start: 11/13/24 12:02 Freq: NEEDED Status: Active Protocol: Document 11/13/24 12:13 MB (Rec: 11/13/24 13:05 [id number]) Subjective Physical Therapy Visit Type Type Initial Evaluation Visit Start Time 12:13 Visit Stop Time 12:47 Physical Therapy Visit Comments Patient Comments Pt states she is waking up better from this surgery compared to after left TKR eight weeks ago, she is starting to feel her legs and she wishes to do PT before she receives opioids and she hopes to put some weight in her legs/help her circulation Therapy Pain Assessment Pain When Pain Assessed At Rest Pain Present Pain Present Pain Reported Location Right knee Intensity 5 Scale Used Numeric (0 - 10) M4 PT-IP Mobility and Gait Start: 11/13/24 12:02 Freq: NEEDED Status: Active Protocol: Document 11/13/24 12:13 MB (Rec: 11/13/24 13:05 [id number]) PT-Bed Mobility Assessment Rolling Level of Assist Independent Supine to Sit Supine to Sit Independent Sit to Supine Sit to Supine Independent Scooting Scooting to Edge of Bed Independent PT-Transfer Assessment Sit to and From Stand Sit to and from Stand Contact Guard Assistance,1 Person Assistance,Use of Upper Extremities Equipment Transfer Assistive Device Gait Belt,Front Wheeled Walker Orthotic/Prosthetic Devices or Brace: No Transfers Transfer Destination Bed Transfer Technique Right side stepping Transfer Ability Level of Assist Contact Guard Assistance,1 Person Assistance,Use of Upper Extremities Comments Mobility Comments Pt leans way over feet and pushes up from the walker rather than pushing up from bed rail as cued for sit to stand. Once standing, she states she cannot feel her toes and she is able to side step up to [facility] Gait Assessment Gait Gait Assistance Required: Contact Guard Assist Distance (Feet) 2 Able to Maintain Weight Bearing Status Yes During Gait Assistive Devices Assistive Device Gait Belt,Front Wheeled Walker Orthotic/Prosthetic Devices or Brace: No Gait Deviations General Gait Pattern Antalgic,Decreased Feet Clearance,Step-to Gait,Wide Based Gait Factors Limiting Gait Function Factors Limiting Gait Function Decreased Sensation,Decreased Strength,Incoordination, Limited Range of Motion,Pain, Poor Balance PT-Balance Assessment Sitting Balance and Reactions Static Sitting Balance Ability Good Dynamic Sitting Balance Ability Good Standing Balance and Reactions Static Standing Balance Ability Good Dynamic Standing Balance Ability Fair Device Used RW M5 PT-IP Objective Assessments Start: 11/13/24 12:02 Freq: NEEDED Status: Active Protocol: Document 11/13/24 12:13 MB (Rec: 11/13/24 13:05 [id number]) Orientation Orientation/Cognition Level of Alertness Alert Orientation Name,Age,Birthday,Month,Date, Year,Day of Week,Place, Situation Language Function Ability No Deficits Noted Safety Awareness Understands Safety Issues Memory Description No Deficits Noted Gross Range of Motion Upper Extremity ROM Impairments NT, appear functional with mobility Lower Extremity ROM Assessment Right Impaired Impairments AROM in supine is grossly 5-30 deg Strength Lower Extremity Strength Assessment Right Impaired Comments Strength Comments R great toe extension 3+/5, did not test right knee and hip, left foot is functional Coordination Assessment Gross Coordination Gross Coordination WNL Assessment Coordination Comments NT, impaired post-op Sensation Assessment Sensation Gross Sensation Right LE Impaired,Left LE Impaired Muscle Tone Muscle Tone WNL No M6 PT-IP Treatment Start: 11/13/24 12:02 Freq: NEEDED Status: Active Protocol: Document 11/13/24 12:13 MB (Rec: 11/13/24 13:05 [id number]) Physical Therapy Treatment Exercises Exercises Ankle Pumps,Gluteal Sets,Quad Sets,Heel Slides Education Education Provided Weight Bearing Status,Post-Op Packet,Safety Other Treatments Other Treatment Performed Ed pt and SO in benefits of keeping her right knee straight in bed rather than flexed on roll, bolster or pillow M7 PT-IP Assessment and Plan Start: 11/13/24 12:02 Freq: NEEDED Status: Active Protocol: Document 11/13/24 12:13 MB (Rec: 11/13/24 13:05 [id number]) PT Summary Assessment and Plan Potential Rehabilitation Potential Good Status of Condition at Evaluation Evolving Summary Impairments Pain,ROM,Strength,Balance, Coordination,Sensation,Bed Mobility,Transfers,Gait, Activity Tolerance Progress Towards Goals Progressing Toward Goals Assessment Summary Pt is a 54 y/o presenting with decreased right knee ROM, decreased strength and decreased sensation in toes once standing a few hours post -op. Pt moves well and just recovered well after left TKR that she states was 8 weeks ago. She and SO, who is available during treatment, are well-prepared for post-op home and OP care. Pt is only safe to take a few side steps at this time d/t decreased sensation in feet and so will attempt further gait and steps at a later time. Pt also reports poor response to opioids last surgery and so it is possible that this may be a barrier to treatment later this date. Goals Transfer Goal Independent,Front Wheeled Walker Gait Goal Independent,Front Wheel Walker Gait Distance 100 Other Goals Pt will ascend and descend 4 steps with B rail and no more than SBA to allow safe home entrance. Frequency of Treatment Frequency Of Treatment Twice a Day Treatment Plan Physical Therapy Treatment Plan Bed Mobility Training,Transfer Training,Gait Training, Therapeutic Exercise,Balance Retraining,Post Op Education, Discharge Planning,Hot or Cold Pack,Neuromuscular Re-ed, Coordination Retraining,Manual Therapy Weight Bearing Status Weight Bearing Status Weight Bear as Tolerated Recommendations To Nursing Amount of Assist Needed 1 Person Assist Discharge Recommendations PT Discharge Recommendations Home with Assistance, Outpatient PT Transportation Needs at Discharge Private Vehicle
--- NOTE | 2024-11-13 14:12 | PC.NURSE ---
Patient given oxy, tylenol, and ibuprofen for r. knee pain at a 5/10. This has been helpful to patient. She has a shannan dressing in place that is cdi. S.O. is at her side and she denies pain.
[2024-11-13] MEDS: GABAPENTIN 300 MG CAPSULE PO (16:05)
[2024-11-13] MEDS: CEFAZOLIN 2 GM/100 ML PREMIX 100 ML IV (16:06)
--- NOTE | 2024-11-13 16:23 | PT.IPTN ---
Current Diagnoses Bilateral primary osteoarthritis of knee (11/13/24) Surgery Performed Operation Date: 11/13/24 07:45 Actual Procedures p Total Knee Arthroplasty - Robot(Right) - Jelena Rosales MD Physical Therapy Treatment Note M2 PT-IP Current Condition Start: 11/13/24 12:02 Freq: NEEDED Status: Active Protocol: Document 11/13/24 12:13 MB (Rec: 11/13/24 13:05 MB [id number]) Physical Therapy Current Condition Current Condition Evaluation Date 11/13/24 Treatment Diagnosis Right TKR M3 PT-IP Subjective Start: 11/13/24 12:02 Freq: NEEDED Status: Active Protocol: Document 11/13/24 13:45 MB (Rec: 11/13/24 16:22 MB [id number]) Subjective Physical Therapy Visit Type Type Treatment Note Visit Start Time 13:45 Visit Stop Time 15:10 Number of LAMINATION BUILDER Visits 0 Physical Therapy Visit Comments Patient Comments Pt had just finished toileting and bathing and is sitting on window seat, low and on cushion with no arm rests. She asks help to stand up with gait belt and walker, ADVICE LINE RN and SO nearby. Therapy Pain Assessment Pain When Pain Assessed At Rest Pain Present Pain Present Pain Reported Location Right knee Scale Used Number not given M4 PT-IP Mobility and Gait Start: 11/13/24 12:02 Freq: NEEDED Status: Active Protocol: Document 11/13/24 13:45 MB (Rec: 11/13/24 16:22 MB [id number]) PT-Transfer Assessment Sit to and From Stand Sit to and from Stand Moderate Assistance,1 Person Assistance,Use of Upper Extremities Equipment Transfer Assistive Device Gait Belt,Front Wheeled Walker Orthotic/Prosthetic Devices or Brace: No Transfers Transfer Destination Wheelchair Transfer Technique Ambulation Transfer Ability Level of Assist Standby Assistance,1 Person Assistance,Use of Upper Extremities Comments Mobility Comments From lower window seat without armrests, pt requires assistance blocking walker so she can push up from it and assistance with gait belt, she also reaches for SO hand with right hand and she gets to standing. STS from w/c x2 with CGA Gait Assessment Gait Gait Assistance Required: Contact Guard Assist,1 Person Assist Distance (Feet) 25 Able to Maintain Weight Bearing Status Yes During Gait Assistive Devices Assistive Device Gait Belt,Front Wheeled Walker Orthotic/Prosthetic Devices or Brace: No Gait Deviations General Gait Pattern Antalgic,Decreased Feet Clearance,Step-to Gait,Wide Based Gait Factors Limiting Gait Function Factors Limiting Gait Function Decreased Strength,Limited Range of Motion,Pain Comments Gait Comments Cued for RW first, then right foot and following with left foot, step-to gait initially and pt performs well. 25'x1 and 5'x1 Stair Climbing Assessment Evaluation Level of Assist On Stairs Contact Guard Assistance,1 Person Assistance Devices Stair Climbing Assistive Devices Left Railing,Right Railing Technique/Endurance Stair Climbing Direction Ascend and Descend Stair Climbing Technique Step to Step Number of Steps Climbed 3 Stair Climbing Set # Repetitions (reps) 1 PT-Balance Assessment Sitting Balance and Reactions Static Sitting Balance Ability Good Dynamic Sitting Balance Ability Good Standing Balance and Reactions Static Standing Balance Ability Good Dynamic Standing Balance Ability Fair Device Used RW M5 PT-IP Objective Assessments Start: 11/13/24 12:02 Freq: NEEDED Status: Active Protocol: Document 11/13/24 12:13 MB (Rec: 11/13/24 13:05 [id number]) Orientation Orientation/Cognition Level of Alertness Alert Orientation Name,Age,Birthday,Month,Date, Year,Day of Week,Place, Situation Language Function Ability No Deficits Noted Safety Awareness Understands Safety Issues Memory Description No Deficits Noted Gross Range of Motion Upper Extremity ROM Impairments NT, appear functional with mobility Lower Extremity ROM Assessment Right Impaired Impairments AROM in supine is grossly 5-30 deg Strength Lower Extremity Strength Assessment Right Impaired Comments Strength Comments R great toe extension 3+/5, did not test right knee and hip, left foot is functional Coordination Assessment Gross Coordination Gross Coordination WNL Assessment Coordination Comments NT, impaired post-op Sensation Assessment Sensation Gross Sensation Right LE Impaired,Left LE Impaired Muscle Tone Muscle Tone WNL No M6 PT-IP Treatment Start: 11/13/24 12:02 Freq: NEEDED Status: Active Protocol: Document 11/13/24 12:13 MB (Rec: 11/13/24 13:05 [id number]) Physical Therapy Treatment Exercises Exercises Ankle Pumps,Gluteal Sets,Quad Sets,Heel Slides Education Education Provided Weight Bearing Status,Post-Op Packet,Safety Other Treatments Other Treatment Performed Ed pt and SO in benefits of keeping her right knee straight in bed rather than flexed on roll, bolster or pillow M7 PT-IP Assessment and Plan Start: 11/13/24 12:02 Freq: NEEDED Status: Active Protocol: Document 11/13/24 13:45 MB (Rec: 11/13/24 16:22 MB [id number]) PT Summary Assessment and Plan Potential Rehabilitation Potential Good Status of Condition at Evaluation Evolving Summary Impairments Pain,ROM,Strength,Balance, Coordination,Bed Mobility, Transfers,Gait,Activity Tolerance Progress Towards Goals Progressing Toward Goals Assessment Summary Arpita is progressing towards goals and further gait and stair training performed this afternoon with SO nearby. Goals Transfer Goal Independent,Front Wheeled Walker Gait Goal Independent,Front Wheel Walker Gait Distance 100 Other Goals Pt will ascend and descend 4 steps with B rail and no more than SBA to allow safe home entrance. Frequency of Treatment Frequency Of Treatment Twice a Day Treatment Plan Physical Therapy Treatment Plan Bed Mobility Training,Transfer Training,Gait Training, Therapeutic Exercise,Balance Retraining,Post Op Education, Discharge Planning,Hot or Cold Pack,Neuromuscular Re-ed, Coordination Retraining,Manual Therapy Weight Bearing Status Weight Bearing Status Weight Bear as Tolerated Recommendations To Nursing Amount of Assist Needed 1 Person Assist Discharge Recommendations PT Discharge Recommendations Home with Assistance, Outpatient PT Transportation Needs at Discharge Private Vehicle
== END 2024-11-13 17:58 | disposition home or self-care (01) ==
LOC: OR 06:07 → AC 06:08
PROVIDERS: Family Provider Orthopaedic Surgery; PCP Family Medicine; Referring Provider Orthopaedic Surgery; Visit Provider Orthopaedic Surgery
PROC: 0SRC0JZ Replacement of Right Knee Joint with Synthetic Substitute, Open Approach (ICD-10-PCS; CPT 27447; principal; 2024-11-13 07:45)
DX: M17.11 Unilateral primary osteoarthritis, right knee (principal); M25.761 Osteophyte, right knee; G89.18 Other acute postprocedural pain
CPT/HCPCS: 27447; 20985; 64447; 73560; 97116; 97161; 97530; 97535; C1776; C9290; J0171; J0690; J2250; J2704; J3010

== ENCOUNTER → 2024-12-19 12:19 | Outpatient (CLI) | payer OTHER, SELFPAY ==
[2024-11-13 11:32] VITALS: BMI 47.7
[2024-12-19 13:35] LABS: TSH w/ Reflex to FT4 0.31 uIU/mL (0.47-4.68)
[2024-12-19 14:00] LABS: Free T4, Direct Thyroxine 1.53 ng/dL (0.78-2.19)
== END ==
PROVIDERS: Family Provider Orthopaedic Surgery; PCP Family Medicine; Referring Provider Family Medicine; Visit Provider Family Medicine
DX: E03.9 Hypothyroidism, unspecified (principal)
CPT/HCPCS: 36415; 84439; 84443

== ENCOUNTER → 2025-02-04 10:55 | Outpatient (CLI) | payer OTHER, SELFPAY ==
[2024-11-13 11:32] VITALS: BMI 47.7
[2025-02-04 12:54] LABS: TSH w/ Reflex to FT4 0.07 uIU/mL (0.47-4.68)
[2025-02-04 13:14] LABS: Vitamin B12 > 1000 pg/mL (239-931)
[2025-02-04 13:39] LABS: Free T4, Direct Thyroxine 1.77 ng/dL (0.78-2.19)
[2025-02-07 00:14] LABS: Hepatitis Be Antibody Non Reactive (Negative)
== END ==
PROVIDERS: Family Provider Orthopaedic Surgery; PCP Family Medicine; Referring Provider Family Medicine; Visit Provider Family Medicine
DX: E03.9 Hypothyroidism, unspecified (principal); E53.8 Deficiency of other specified B group vitamins; Z11.59 Encounter for screening for other viral diseases
CPT/HCPCS: 36415; 82607; 84439; 84443; 86707

== ENCOUNTER → 2025-05-19 08:59 | Outpatient (CLI) | payer OTHER, SELFPAY ==
[2024-11-13 11:32] VITALS: BMI 47.7
[2025-05-19 10:47] LABS: Thyroid Stimulating Hormone 9.09 uIU/mL (0.47-4.68)
== END ==
LOC: LAB 09:03
PROVIDERS: Family Provider Orthopaedic Surgery; PCP Family Medicine; Referring Provider Family Medicine; Visit Provider Family Medicine
DX: E03.9 Hypothyroidism, unspecified (principal)
CPT/HCPCS: 36415; 84443

== ENCOUNTER → 2025-06-15 11:51 | Outpatient (CLI) | payer OTHER, SELFPAY ==
[2024-11-13 11:32] VITALS: BMI 47.7
[2025-06-15 12:53] LABS: Blood Urea Nitrogen 20 mg/dL (7-17); Calcium 10.3 mg/dL (8.4-10.2); Carbon Dioxide 31 mmol/L (22-32); Chloride 101 mmol/L (98-107); Estimated Glomerular Filt Rate 56 mL/min (>60); Glucose 97 mg/dL (70-99); HEMOLYSIS < 15 (0-50); Potassium 4.5 mmol/L (3.4-5.1); Sodium 138 mmol/L (137-145)
== END ==
LOC: LAB 11:52
PROVIDERS: Family Provider Orthopaedic Surgery; PCP Family Medicine; Referring Provider Family Medicine; Visit Provider Family Medicine
DX: R25.2 Cramp and spasm (principal); R94.4 Abnormal results of kidney function studies
CPT/HCPCS: 36415; 80048

== ENCOUNTER → 2025-07-01 11:52 | Outpatient (CLI) | payer OTHER, SELFPAY ==
[2024-11-13 11:32] VITALS: BMI 47.7
[2025-07-01 14:07] LABS: Thyroid Stimulating Hormone 4.82 uIU/mL (0.47-4.68)
== END ==
PROVIDERS: Family Provider Orthopaedic Surgery; PCP Family Medicine; Referring Provider Family Medicine; Visit Provider Family Medicine
DX: E03.9 Hypothyroidism, unspecified (principal)
CPT/HCPCS: 36415; 84443

== ENCOUNTER → 2025-10-13 13:41 | Outpatient (CLI) | payer OTHER, SELFPAY ==
[2024-11-13 11:32] VITALS: BMI 47.7
[2025-10-13 14:27] LABS: Influenza A - CEPHEID Flu A NEGATIVE (NEGATIVE); Influenza B - CEPHEID Flu B NEGATIVE (NEGATIVE)
[2025-10-13 14:28] LABS: COVID-19 CEPHEID 4-PLEX PCR Negative (Negative)
== END ==
LOC: LAB 13:43
PROVIDERS: PCP Family Medicine; Visit Provider Physician Assistant
DX: R05.9 Cough, unspecified (principal); R50.9 Fever, unspecified
CPT/HCPCS: 87637

== ENCOUNTER → 2025-11-04 10:47 | Outpatient (CLI) | payer OTHER, SELFPAY ==
[2024-11-13 11:32] VITALS: BMI 47.7
--- NOTE | 2025-11-04 10:49 | DI.RAD.S_ITS ---
PROCEDURE: XR CHEST 2V INDICATIONS: Persistent cough 1 month TECHNIQUE: 2 views of the chest were acquired. COMPARISON: [facility], CR, XR CHEST 1V, 09/01/2022, 15:02. FINDINGS: Surgical changes and devices: None. Lungs and pleura: Lungs are clear. No pleural effusions or pneumothorax. Mediastinum: Mediastinal contours are normal. Heart size is normal. Bones and chest wall: No suspicious bony abnormalities. Soft tissues appear unremarkable. IMPRESSION: No acute cardiopulmonary abnormality is seen. Approved by: Jamel Del Cid M.D. on 11/05/2025 at 15:24
== END ==
PROVIDERS: PCP Family Medicine; Referring Provider Family Medicine; Visit Provider Family Medicine
DX: R05.3 Chronic cough (principal)
CPT/HCPCS: 71046